=== PATIENT | female | born 1970 | race Two or more races ===

== ENCOUNTER 2025-04-14 08:37 | Inpatient (IN) | payer MEDICAID, OTHER ==
[~2025-04-14] VITALS: Ht 167.6 cm; Wt 74.0 kg
--- NOTE | 2025-04-14 09:18 | ED.PDOC ---
SOB-HPI HPI Comments This is a 54 year old female presenting to the ED with chief complaint of SOB. Patient reports that she has been experiencing intermittent SOB for the past 2 days. Patient denies any chest pain, fever, chills, dizziness, hemoptysis, N/V, or cough. Chief Complaint: Shortness of Breath Time Seen by MD: 09:17 Reviewed notes: Nurses Notes, Medications, Allergies Information Source: Patient Mode of Arrival: Ambulatory Severity: Moderate Timing: Days Duration: Intermittent Context: At Rest PE Risk Factors: None History of: None Prehospital treatment: None Modifying Factors: Nothing Past Medical History PAST MEDICAL HISTORY: CKF, DM, HTN Surgical History: Denies all surgeries REHABILITATION AIDE/SCHEDULER History: Denies all REHABILITATION AIDE/SCHEDULER Hx Family History Family History: Reviewed,noncontributory to illness Social History Smoker: Non-Smoker Alcohol: Denies ETOH Use Drugs: Denies Drug Use Lives In: Home Constitutional: denies: chills, diaphoresis, fatigue, fever, malaise, sweats, weakness, others EENTM: denies: blurred vision, double vision, ear bleeding, ear discharge, ear drainage, ear pain, ear ringing, eye pain, eye redness, hearing loss, mouth pain, mouth swelling, nasal discharge, nose bleeding, nose congestion, nose pain, photophobia, tearing, throat pain, throat swelling, voice changes, others Respiratory: reports: shortness of breath; denies: cough, hemoptysis, orthopnea, SOB at rest, SOB with excertion, stridor, wheezing, others Cardiovascular: denies: chest pain, dizzy spells, diaphoresis, Dyspnea on exertion, edema, irregular heart beat, left arm pain, lightheadedness, palpitations, PND, syncope, others Gastrointestinal: denies: abdomen distended, abdominal pain, blood streaked bowels, constipated, diarrhea, dysphagia, difficulty swallowing, hematemesis, melena, nausea, poor appetite, poor fluid intake, rectal bleeding, rectal pain, vomiting, others Genitourinary: denies: abnormal vagina bleeding, burning, dyspareunia, dysuria, flank pain, frequency, hematuria, incontinence, pain, , vagina discharge, urgency, others Neurological: denies: dizziness, fainting, headache, left sided numbness, left sided weakness, numbness, paresthesia, pre-existing deficit, right sided numbness, right sided weakness, seizure, speech problems, tingling, tremors, weakness, others Musculoskeletal: denies: back pain, gout, joint pain, joint swelling, muscle pain, muscle stiffness, neck pain, others Integumetry: denies: bruises, change in color, change in hair/nails, dryness, laceration, lesions, lumps, rash, wounds, others Allergic/Immunocompromised: denies: Difficulty Healing, Frequent Infections, Hives, Itching, others Hematologic/Lymphatic: denies: anemia, blood clots, easy bleeding, easy bruising, swollen glands, others Endocrine: denies: excessive hunger, excessive sweating, excessive thirst, excessive urination, flushing, intolerance to cold, intolerance to heat, unexplained weight gain, unexplained weight loss, others Psychiatric: denies: anxiety, bipolar disorder, depression, hopeless, panic disorder, schizophrenia, sleepless, suicidal, others All Other Systems: Reviewed and Negative Physical Exam General Appearance: Moderate Distress, Normal HEENT: Normal ENT Inspection, Pharynx Normal, TMs Normal Neck: Full Range of Motion, Non-Tender, Normal, Normal Inspection Respiratory: Chest Non-Tender, No Accessory Muscle Use, Other (Coarse breath sounds) Cardiovascular: No Edema, No JVD, No Murmur, No Gallop, Normal Peripheral Pulses, Regular Rate/Rhythm Breast Exam: Deferred Gastrointestinal: No Organomegaly, Non Tender, No Pulsatile Mass, Normal Bowel Sounds, Soft Genitalia: Deferred Pelvic: Deferred Rectal: Deferred Extremities: No calf tenderness, Normal capillary refill, Normal inspection, Normal range of motion, Non-tender, No pedal edema Musculoskeletal : Apperance: Normal Neurologic: Alert, cardiopulmonary technician II-XII nml as Tested, No Motor Deficits, Normal Affect, Normal Mood, No Sensory Deficits Cerebellar Function: Normal Reflexes: Normal Skin: Dry, Normal Color, Warm Peripheral Pulses: 3+ Radial (R), 3+ Radial (L) Lymphatic: No Adenopathy EKG EKG : Pulse Rate (adult): 98 [place]: Normal Cardiac Rhythm: NSR Block: None Hypertrophy: None ST: Normal Was a procedure done? Was a procedure done?: No Differential Dx Differential Diagnosis: Anxiety, Asthma, Bronchitis, CHF, COPD X-Ray, Labs, Meds, VS Vital Signs Date Time Temp Pulse Resp B/P (MAP) Pulse Ox O2 Delivery O2 Flow Rate FiO2 04/14/25 09:18 98 04/14/25 08:49 98 04/14/25 08:39 97.6 99 18 144/75 94 97.6 Patient alert. Complaining of shortness a breath. Chronic kidney disease. Vitals stable. Possible CHF. Possible pneumonitis. Nephrology consultation. Reviewed her history. Explained to the patient. Continue monitoring. Chest XR: FINDINGS: Lines and Tubes: None Lungs: Increased interstitial prominence Pleura: Small bilateral pleural effusions No pneumothorax. Cardiomediastinal contours: Unremarkable Bones: Unremarkable IMPRESSION: Pulmonary edema. Images Reviewed?: Images reviewed and evaluated by me Time of 1ST Reevaluation: 10:16 Reevaluation 1ST: Unchanged Patient Education/Counseling: Diagnosis, Treatment Family Education/Counseling: Diagnosis, Treatment SEPSIS Sepsis Screen Date sepsis recognized/suspect: Apr 14, 2025 Time Sepsis recognized/suspect: 0841 Recent Procedure: No On Antibiotic Therapy: No Respiratory Rate >20: No Heart Rate >90: No Temp<36 C (96.8 F) or >38.3 C: No SBP <90 or MAP <65 mmHG: No New Acute Mental Status Change: No Is the patient on CPAP, BIPAP,: No Physician Orders Complete Blood Count (04/14/25 09:12) B-Type Natriuretic Peptide (04/14/25 09:12) Chest Portable (04/14/25 09:12) Urinalysis (04/14/25 09:12) Basic Metabolic Panel (04/14/25 09:12) Vital Signs Date Time Temp Pulse Resp B/P (MAP) Pulse Ox O2 Delivery O2 Flow Rate FiO2 04/14/25 09:18 98 04/14/25 08:49 98 04/14/25 08:39 97.6 99 18 144/75 94 97.6 Departure 1 Departure Time of Disposition: :49 Impression: Primary Impression: CHF (congestive heart failure) Qualified Codes: I50.43 - Acute on chronic combined systolic (congestive) and diastolic (congestive) heart failure Additional Impression: Chronic kidney disease Qualified Codes: N18.9 - Chronic kidney disease, unspecified Disposition: ADMITTED INPATIENT Admit to: Med Surg Condition: Guarded Critical Care Note Critical Care Time?: Yes (90 min-critical care time only) Stability Stability form required: No Heart Score Heart Score: Heart Score Response (Comments) Value History Moderate Suspicious 1 EKG Normal 0 Age 45-64 1 Risk Factors 1 or 2 risk factors 1 Troponin Normal limit 0 Total 3 I personally scribed for LEXY ARVIZU MD ([email or web address]) on 04/14/25 at 09:18. Electronically submitted by Enrico Moncada ([email or web address]). I personally scribed for LEXY ARVIZU MD ([email or web address]) on 04/14/25 at 10:32. Electronically submitted by Enrico Moncada ([email or web address]). LEXY ARVIZU MD Apr 14, 2025 09:18
--- NOTE | 2025-04-14 09:51 | ECG ---
[facility] Test Date: 2025-04-14 Test Time: 08:49:14 Pat Name: RADHA VALLEJO Department: [facility] ED Room: [address] [place] [address] Gender: F Womens Volleyball Coach: LEAH : 1970 Requested By: LEXY ARVIZU Order Number: [id number] Reading MD: Franki Sandoval Measurements Intervals [place] Rate: 98 P: 71 MT: 171 QRS: 70 QRSD: 161 T: 41 QT: 427 QTc: 546 Interpretive Statements Sinus rhythm Nonspecific intraventricular conduction delay Electronically Signed On 04-14-2025 22:10:22 PDT by Franki Sandoval Please click the below link to view image of tracing.
--- NOTE | 2025-04-14 10:18 | DVH ---
CHEST RADIOGRAPH Indication: sob Technique: Single frontal view of the chest was obtained COMPARISON: None FINDINGS: Lines and Tubes: None Lungs: Increased interstitial prominence Pleura: Small bilateral pleural effusions No pneumothorax. Cardiomediastinal contours: Unremarkable Bones: Unremarkable IMPRESSION: Pulmonary edema.
[2025-04-14 10:44] LABS: Hematocrit 27.6 % (36.0-46.0); Hemoglobin 9.1 g/dL (12.2-16.2); Mean Corpuscular Hemoglobin 27.8 pg (28.0-32.0); Mean Corpuscular Volume 84.4 fL (80.0-100.0); Nucleated Red Blood Cells % 0.0 %
[2025-04-14 10:55] LABS: Sodium 141 mmol/L (136-145)
[2025-04-14 10:56] LABS: Anion Gap 16 (5-15)
[2025-04-14 11:01] LABS: BUN/Creatinine Ratio 7.7 (10.0-20.0)
[2025-04-14 11:04] LABS: Blood Urea Nitrogen 75 mg/dL (9-23); Calcium 8.1 mg/dL (8.7-10.4); Carbon Dioxide 16 mmol/L (20-31); Chloride 109 mmol/L (98-107); Glucose 143 mg/dL (74-106)
[2025-04-14 11:06] LABS: Potassium 5.8 mmol/L (3.5-5.1)
[2025-04-14] MEDS: FUROSEMIDE 20 MG/2 ML VIAL IV ONE (11:27)
[2025-04-14] MEDS ORDERED: DOCUSATE SOD 100 MG CAP PO PRN (14:00)
[2025-04-14] MEDS ORDERED: HYDROcodone-ACET 5/325MG TAB PO PRN (14:00)
[2025-04-14] MEDS ORDERED: DEXTROSE (50%) 50ML SYRG IV PRN (14:00)
[2025-04-14] MEDS: SODIUM CHLOR 0.9% PF (SALINE LOCK) 10ML VIAL/SYR IV SCH (14:20)
[2025-04-14] MEDS: SODIUM ZIRCONIUM CYCL 10 GM PAK PO ONE (15:06)
[2025-04-14] MEDS: InsuLIN REG 1unit/0.01ml Soln (100units/ml) SC ONE (15:13)
[2025-04-14] MEDS ORDERED: NITROGLYCERIN 0.4 MG SL TAB SL PRN (15:30)
[2025-04-14] MEDS ORDERED: MORPHINE SULFATE INJ 2 MG/ml SYRG IV PRN (15:30)
--- NOTE | 2025-04-14 15:32 | DVHHP2 ---
History of Present Illness Reason for Visit: Acute on chronic renal failure History of Present Illness The patient is a 51-year-old female with past medical history of chronic kidney failure, diabetes mellitus, and hypertension who presented to [facility] ED with complaint of shortness of breaths. Patient reports she has been experiencing intermittent shortness of breaths for the past 2 days. Patient was seen and evaluated in the ED, laboratory data shows WBC 8.2, hemoglobin 9.1, hematocrit 27.6, platelets 331, sodium 141, potassium 5.8, BUN 75, creatinine 9.95, glucose 143, calcium 8.1, BNP 533.89, blood pressure 152/77, heart rate 95, temperature 98.7 F, O2 saturation 94% on oxygen. Chest x-ray revealing pulmonary edema. Patient was given Lasix 20 mg IV x1, nephrology will follow the patient, please see medication orders section in the computer. On my assessment, patient denied chest pain, no headache, no dizziness, currently on oxygen, no diaphoresis, no abdominal pain, no nausea, no vomiting, no fever, no chills. Patient was admitted for further evaluation and medical management. Past Medical History Chronic kidney failure (CKF), DM, HTN Past Surgical History Denies all surgeries Family History Reviewed, noncontributory to the management of this case. Past Social History The patient lives at home, denies smoking, alcohol or illicit drugs abuse. Review of Systems Constitutional: Yes: Weakness; No: Fever, Chills, Sweats, Malaise, Other Eyes: No: Pain, Vision change, Conjunctivae inflammation, Eyelid inflammation, Other, Redness ENT: No: Ear pain, Ear discharge, Nose pain, Nose discharge, Nose congestion, Mouth pain, Mouth swelling, Throat pain, Throat swelling, Other Respiratory: No: Cough, Dry, Shortness of breath, SOB with excertion, Wheezing, Hemoptysis, Pleuritic Pain, Sputum, Wheezing, Other Cardiovascular: No: Chest Pain, Palpitations, Orthopnea, Paroxysmal Noc. Dyspnea, Edema, Lt Headedness, Other Gastrointestinal: No: Nausea, Vomiting, Abdominal Pain, Diarrhea, Constipation, Melena, Hematochezia, Other Genitourinary: No Dysuria, No Frequency, No Incontinence, No Hematuria, No Retention, No Other Musculoskeletal: No: other, neck pain, shoulder pain, arm pain, back pain, hand pain, leg pain, foot pain Skin: No: Rash, Lesions, Jaundice, Bruising, Other Neurological: No: Weakness, Numbness, Incoordination, Change in speech, Confusion, Seizures, Other Allergies: Coded Allergies: NO KNOWN ALLERGIES (Unverified , 04/14/25) Medications Current Medications Medications Dose Ordered Sig/Ronald Route Start Time Stop Time Status Last Admin Dose Admin Aspirin 81 mg DAILY PO 04/15/25 10:00 Multivit/Ca Carb/ B Cmplx/FA/Prenat 1 tab DAILY PO 04/15/25 10:00 Amlodipine Besylate 5 mg DAILY PO 04/15/25 10:00 Carvedilol 12.5 mg Q12HR PO 04/14/25 22:00 Atorvastatin Calcium 10 mg HS PO 04/14/25 22:00 Famotidine 20 mg DAILY IV 04/15/25 10:00 Clonidine HCl 0.1 mg Q4HP PRN PO 04/14/25 14:00 Diagnostic Test (Pha) 1 strip IQ4HR 04/14/25 16:00 Insulin Human Regular IQ4HR SC 04/14/25 16:00 Dextrose 50 ml UD PRN IV 04/14/25 14:00 Sodium Chloride 10 ml Q8HR IV 04/14/25 14:00 04/14/25 14:20 10 ML Acetaminophen/ Hydrocodone Bitart 1 tab Q4HP PRN PO 04/14/25 14:00 Ondansetron HCl 4 mg Q4HP PRN IV 04/14/25 14:00 Docusate Sodium 100 mg BIDPRN PRN PO 04/14/25 14:00 Acetaminophen 650 mg Q6HP PRN PO 04/14/25 14:00 Exam Vital Signs Vital Signs Date Time Temp Pulse Resp B/P (MAP) Pulse Ox O2 Delivery O2 Flow Rate FiO2 04/14/25 14:24 154/74 04/14/25 14:00 98.0 101 26 95 98.0 04/14/25 14:00 Nasal Cannula* 2 28 General Appearance: Alert, Oriented X3, Cooperative, No acute distress HEENT: Atraumatic, PERRLA, EOMI, Mucous membr. moist/pink Respiratory: Normal air movement, Other (Pulmonary edema) Cardiovascular: Regular rate, Normal S1, Normal S2, No murmurs Abdominal: Normal bowel sounds, Soft, No tenderness, No hepatospenomegaly, No masses Extremities: No clubbing, No cyanosis, No edema, Normal pulses, No tenderness/swelling Skin: No rashes, No breakdown, No significant lesion Neuro: Normal speech, Normal tone, Sensation intact, Cranial nerves 3-12 NL, Reflexes 2+, Other (Generalized weakness) Psych/Mental Status: Mental status NL, Mood NL Labs/Xrays Labs Test 04/14/25 15:04 04/14/25 10:13 Range/Units POC Glucose 220 H 70-106 mg/dl White Blood Count 8.2 4.4-10.8 10^3/uL Red Blood Count 3.27 L 4.0-5.20 10^6/uL Hemoglobin 9.1 L 12.2-16.2 g/dL Hematocrit 27.6 L 36.0-46.0 % Mean Corpuscular Volume 84.4 80.0-100.0 fL Mean Corpuscular Hemoglobin 27.8 L 28.0-32.0 pg Mean Corpuscular Hemoglobin Concent 32.9 32.0-36.0 g/dL Red Cell Distribution Width 14.6 H 11.8-14.3 % Platelet Count 331 140-450 10^3/uL Mean Platelet Volume 7.5 6.9-10.8 fL Neutrophils (%) (Auto) 69.2 37.0-80.0 % Lymphocytes (%) (Auto) 17.7 10.0-50.0 % Monocytes (%) (Auto) 5.2 0.0-12.0 % Eosinophils (%) (Auto) 6.9 0.0-7.0 % Basophils (%) (Auto) 1.0 0.0-2.0 % Neutrophils # (Auto) 5.6 1.6-8.6 10 ^3/uL Lymphocytes # (Auto) 1.4 0.4-5.4 10 ^3/uL Monocytes # (Auto) 0.4 0-1.3 10 ^3/uL Eosinophils # (Auto) 0.6 0-0.8 10 ^3/uL Basophils # (Auto) 0.1 0-0.2 10 ^3/uL Nucleated Red Blood Cells 0.0 % Sodium Level 141 136-145 mmol/L Potassium Level 5.8 *H 3.5-5.1 mmol/L Chloride Level 109 H 98-107 mmol/L Carbon Dioxide Level 16 L 20-31 mmol/L Anion Gap 16 H 5-15 Blood Urea Nitrogen 75 H 9-23 mg/dL Creatinine 9.76 H 0.550-1.02 mg/dL Glomerular Filtration Rate Calc 4 >90 mL/min BUN/Creatinine Ratio 7.7 L 10.0-20.0 Serum Glucose 143 H 74-106 mg/dL Calcium Level 8.1 L 8.7-10.4 mg/dL B-Type Natriuretic Peptide 533.89 0-100 pg/mL PATIENT: RADHA VALLEJO ACCT: [id number] UNIT: [id number] : 1970 LOC: ER ROOM / BED: / AGE / SEX: 54 / F ADM STATUS: REG ER SERVICE 1 ORDERING PHYSICIAN: LEXY ARVIZU MD PROCEDURE(s): CXRP - CHEST PORTABLE REASON: sob ORDER NUMBER(s): [id number], ACCESSION NUMBER(s): [id number] CHEST RADIOGRAPH Indication: sob Technique: Single frontal view of the chest was obtained COMPARISON: None FINDINGS: Lines and Tubes: None Lungs: Increased interstitial prominence Pleura: Small bilateral pleural effusions No pneumothorax. Cardiomediastinal contours: Unremarkable Bones: Unremarkable IMPRESSION: Pulmonary edema. SEPSIS Sepsis Screen Date sepsis recognized/suspect: Apr 14, 2025 Time Sepsis recognized/suspect: 0841 Recent Procedure: No On Antibiotic Therapy: No Respiratory Rate >20: No Heart Rate >90: No Temp<36 C (96.8 F) or >38.3 C: No SBP <90 or MAP <65 mmHG: No New Acute Mental Status Change: No Is the patient on CPAP, BIPAP,: No Physician Orders Chest Portable (04/14/25 09:12) Urinalysis (04/14/25 09:12) *[facility] (04/14/25 13:52) Aspirin Tablet (04/15/25 10:00) B-Complex W/ C & Folic Tablet (Nephro-Vi (04/15/25 10:00) Amlodipine Tablet (Norvasc Tablet) (04/15/25 10:00) Carvedilol Tablet (Coreg Tablet) (04/14/25 22:00) Atorvastatin (Lipitor) (04/14/25 22:00) Famotidine Injection (Pepcid Injection) (04/15/25 10:00) Type And Screen (04/14/25 13:52) Clonidine Hcl Tablet (Catapres Tablet) (04/14/25 14:00) Glucose Blood (Accu-Chek Comfort Curve T (04/14/25 16:00) Insulin R (Human) (Insulin R) (04/14/25 16:00) Dextrose 50% Syringe (04/14/25 14:00) Allergies (04/14/25 13:52) Code Status (04/14/25 13:52) Renal Standard(2gna,3gk,Lopho) (04/14/25 Dinner) Sodium Chloride Lock (Saline Lock Ns) (04/14/25 14:00) Oxygen Per Hour (04/14/25 13:52) Hydrocodone-Acet 5/325mg Tab ([place] 5/32 (04/14/25 14:00) Ondansetron Hcl (Zofran) (04/14/25 14:00) Docusate Sodium Capsule (Colace Capsule) (04/14/25 14:00) Complete Blood Count (04/15/25 04:00) Comprehensive Metabolic Panel (04/15/25 04:00) Condition: Serious (04/14/25 13:52) Acetaminophen Tablet (Tylenol Tablet) (04/14/25 14:00) Bedrest With Bathroom Privileg (04/14/25 13:52) Sequential Compression Device (04/14/25 ) Admit (04/14/25 15:30) Nitroglycerin Sublingual (Ntrostat Subli (04/14/25 15:30) Morphine Sulfate Injection (04/14/25 15:30) Stat Ekg For Chest Pain (04/14/25 15:30) Notify Md Of Changes From Base (04/14/25 15:30) Lead Quality Control Technician For 24 Hours (04/14/25 15:30) Emergency Dysrhythmia Protocol (04/14/25 15:30) Rhythm Strips Once Every Shift (04/14/25 15:30) Oxygen By Nasal Cannula (04/14/25 15:30) Vital Signs Date Time Temp Pulse Resp B/P (MAP) Pulse Ox O2 Delivery O2 Flow Rate FiO2 04/14/25 14:24 154/74 04/14/25 14:00 98.0 101 26 154/74 (100) 95 98.0 04/14/25 14:00 Nasal Cannula* 2 28 04/14/25 11:27 152/77 04/14/25 11:25 95 16 94 Room Air 04/14/25 11:25 98.7 95 16 152/77 (102) 94 98.7 04/14/25 09:18 98 04/14/25 08:49 98 04/14/25 08:39 97.6 99 18 144/75 94 97.6 Laboratory Tests Test 04/14/25 10:13 White Blood Count 8.2 10^3/uL (4.4-10.8) Medications Medications Dose Ordered Sig/Ronald Route Start Time Stop Time Status Last Admin Dose Admin Amlodipine Besylate 5 mg ONCE ONCE PO 04/14/25 14:00 04/14/25 14:04 DC 04/14/25 14:24 5 MG Furosemide 20 mg ONCE ONCE IV 04/14/25 10:00 04/14/25 10:01 DC 04/14/25 11:27 20 MG Insulin Human Regular 5 units ONCE ONCE SC 04/14/25 14:00 04/14/25 14:04 DC 04/14/25 15:13 5 UNITS Sodium Chloride 10 ml Q8HR IV 04/14/25 14:00 04/14/25 14:20 10 ML Zirconium Oxide 10 gm ONCE ONCE PO 04/14/25 14:00 04/14/25 14:05 DC 04/14/25 15:06 10 GM Assessment/Plan Assessment/Plan Acute on chronic renal failure Pulmonary edema Hyperkalemia Chronic kidney disease, unspecified Anemia of chronic disease Generalized weakness Acute exacerbation of congestive heart failure Plan 1. Admit to telemetry unit 2. Breathing treatment 3. Pain control management 4. Management of fluids and electrolytes 5. Consultation for Nephrology 6. Diagnostic tests chest x-ray 7. DVT prophylaxis -on aspirin 8. Repeat labs CBC, CMP in a.m. 9. Continue with current medical management 10. Treatment plan discussed with patient and RN. Patient verbalized understanding. Plan discussed with: Patient, Other (RN) My Orders Orders - LUCERO IBARRA DNP Procedure Category Date Status Time *Dr[facility] CONS 04/14/25 Transmitted -[place] 13:52 Aspirin Tablet PHA 04/15/25 In Process 10:00 B-Complex W/ C & PHA 04/15/25 In Process Folic Tablet 10:00 Amlodipine Tablet PHA 04/15/25 In Process (Norvasc Tablet) 10:00 Carvedilol Tablet PHA 04/14/25 In Process (Coreg Tablet) 22:00 Atorvastatin (Lipitor) PHA 04/14/25 In Process 22:00 Famotidine Injection PHA 04/15/25 In Process (Pepcid Injection) 10:00 Type And Screen BBK 04/14/25 In Process 13:52 Clonidine Hcl Tablet PHA 04/14/25 In Process (Catapres Tablet) 14:00 Glucose Blood PHA 04/14/25 In Process (Accu-Chek Comfort 16:00 Insulin R (Human) PHA 04/14/25 In Process (Insulin R) 16:00 Dextrose 50% Syringe PHA 04/14/25 In Process 14:00 Allergies SYLVIA 04/14/25 In Process 13:52 Code Status CODE 04/14/25 Transmitted 13:52 Renal DIET 04/14/25 Transmitted Standard(2gna,3gk,Lopho) Dinner Sodium Chloride Lock PHA 04/14/25 In Process (Saline Lock Ns) 14:00 Oxygen Per Hour RT 04/14/25 Transmitted 13:52 Hydrocodone-Acet PHA 04/14/25 In Process 5/325mg Tab ([place] 14:00 Ondansetron Hcl PHA 04/14/25 In Process (Zofran) 14:00 Docusate Sodium PHA 04/14/25 In Process Capsule (Colace 14:00 Complete Blood Count LAB 04/15/25 Verified 04:00 Comprehensive LAB 04/15/25 Verified Metabolic Panel 04:00 Condition: Serious SYLVIA 04/14/25 In Process 13:52 Acetaminophen Tablet PHA 04/14/25 In Process (Tylenol Tablet) 14:00 Bedrest With Bathroom SYLVIA 04/14/25 In Process Privileg 13:52 Sequential SYLVIA 04/14/25 In Process Compression Device Admit ADMIT 04/14/25 Transmitted 15:30 Nitroglycerin PHA 04/14/25 Transmitted Sublingual (Ntrostat 15:30 Morphine Sulfate PHA 04/14/25 Transmitted Injection 15:30 Stat Ekg For Chest SYLVIA 04/14/25 Transmitted Pain 15:30 Notify Md Of Changes SYLVIA 04/14/25 Transmitted From Base 15:30 Lead Quality Control Technician For [facility] 04/14/25 Transmitted 24 Hours 15:30 Emergency Dysrhythmia [facility] 04/14/25 Transmitted Protocol 15:30 Rhythm Strips Once [facility] 04/14/25 Transmitted Every Shift 15:30 Oxygen By Nasal RT 04/14/25 Transmitted Cannula 15:30 Problem List: (1) Acute on chronic renal failure (2) Pulmonary edema (3) Hyperkalemia (4) Chronic kidney disease, unspecified (5) Anemia of chronic disease (6) Generalized weakness (7) Acute exacerbation of congestive heart failure Date of Service: Apr 14, 2025 Billing Provider: LUCERO IBARRA DNP Common Visit Codes: [id number] INP/OBS CARE (HIGH) LUCERO IBARRA DNP Apr 14, 2025 15:32
[2025-04-14] MEDS: InsuLIN REG 1unit/0.01ml Soln (100units/ml) SC SCH (16:00)
[2025-04-14] MEDS: ACCU-CHEK COMFORT CURVE STRIP VI SCH (16:13)
[2025-04-14 18:21] LABS: Urine Protein, UAD 2+ (Negative)
[2025-04-14] MEDS: CALCIUM ACETATE 667 MG CAP PO ONE (19:10)
[2025-04-14] MEDS ORDERED: INSU1INJ19 SC (20:59)
[2025-04-14] MEDS ORDERED: CLON0.1T PO (20:59)
[2025-04-14] MEDS ORDERED: FLUT50SP NAS (20:59)
[2025-04-14] MEDS ORDERED: AMLO1TAB23 PO (20:59)
[2025-04-14] MEDS ORDERED: ZOLP5TAB5 PO (20:59)
[2025-04-14] MEDS: ATORVASTATIN 20 MG TAB PO SCH (21:08)
[2025-04-14] MEDS: CARVEDILOL 12.5 MG TAB PO SCH (21:09)
[2025-04-14 22:43] VITALS: BP 147/78; PULSE 101; RESP 22; TEMP 98.2; O2SAT 93
[2025-04-14 22:44] VITALS: BP 147/78; PULSE 104; RESP 22; TEMP 98.2; O2SAT 93
[2025-04-15] VITALS (16 sets, daily range): BP systolic 134–158; BP diastolic 74–88; PULSE 76–91; RESP 10–20; TEMP 96.8–98.6; O2SAT 86–96
[2025-04-15] MEDS: MELATONIN 5 MG TAB PO ONE (01:09)
[2025-04-15] MEDS: ALBUTEROL SULF 2.5 MG/0.5ML(0.5%) NEB SOLN NEB PRN (01:14)
[2025-04-15] MEDS: ALBUTEROL SULF 2.5 MG/0.5ML(0.5%) NEB SOLN NEB ONE (06:05)
[2025-04-15] MEDS: ALBUTEROL SULF 2.5 MG/0.5ML(0.5%) NEB SOLN ONE (08:23)
[2025-04-15] MEDS: CALCIUM ACETATE 667 MG CAP PO SCH ×2 (08:23→17:37)
[2025-04-15] MEDS: B-COMPLEX W/ C & FOLIC ACID(NEPHROVITE TAB) PO SCH (08:23)
[2025-04-15] MEDS: FAMOTIDINE (10MG/ML) 2ML VL IV SCH (08:25)
[2025-04-15] MEDS: CALCIUM GLUC 1,000mg/50ml-NS 50 ML IV ONE (10:21)
[2025-04-15] MEDS: DEXTROSE (50%) 50ML SYRG IV ONE (10:24)
[2025-04-15] MEDS: InsuLIN REG 1unit/0.01ml Soln (100units/ml) IV ONE (10:34)
[2025-04-15] MEDS: BUMETANIDE 1mg/4ml VIAL (0.25mg/ml) IV SCH (10:39)
[2025-04-15 10:42] LABS: Mean Corpuscular Hemoglobin 27.6 pg (28.0-32.0); Nucleated Red Blood Cells % 0.0 %
[2025-04-15 10:49] LABS: Hematocrit 23.8 % (36.0-46.0); Hemoglobin 7.9 g/dL (12.2-16.2); Mean Corpuscular Volume 82.9 fL (80.0-100.0)
[2025-04-15 10:56] LABS: Iron 54.0 ug/dL (50-170)
[2025-04-15 11:01] LABS: Alanine Aminotransferase 18 U/L (7-40); Albumin 3.9 g/dL (3.2-4.8); Alkaline Phosphatase 72 U/L (46-116); Anion Gap 13 (5-15); BUN/Creatinine Ratio 8.3 (10.0-20.0); Sodium 140 mmol/L (136-145); Total Iron Binding Capacity 225.0 ug/dL (250-425); Total Protein 5.9 g/dL (5.7-8.2)
[2025-04-15 11:02] LABS: Bilirubin, Total 0.3 mg/dL (0.2-1.0); Blood Urea Nitrogen 79 mg/dL (9-23); Calcium 8.0 mg/dL (8.7-10.4); Carbon Dioxide 18 mmol/L (20-31); Chloride 109 mmol/L (98-107); Glucose 144 mg/dL (74-106); Potassium 5.4 mmol/L (3.5-5.1)
--- NOTE | 2025-04-15 11:35 | DVHSR ---
APPROVED REPORT EXAM: Two-dimensional and M-mode echocardiogram with Doppler and color Doppler. Blood Pressure: 152/77 mmHg INDICATION Heart Failure RISK FACTORS Height: 5'6", Weight: 154 DIMENSIONS LVDd5.3 (3.8-5.7cm)LA (2D)5.0 (1.9-4.0cm)Aortic Root2.8 (2.0-3.7cm) LVDs3.9 (2.5-4.0cm)LA (MM) (1.9-4.0cm)Aortic Cusp Exc2.1 (1.5-2.0cm) EF (%) 50.0 (55-70%)Rt. Atrium3.5 (1.9-4.0cm)Asc. Aorta3.1 cm IVSd0.8 (0.7-1.1cm)RV (D)2.6 (1.8-2.4cm) PWd1.4 (0.7-1.1cm) Mitral Valve MitralMitral Stenosis E wave1.25m/sMV Mean GR.mmHg A wave1.07m/sMV Peak GR.mmHg E/A ratio1.22D MVAcm2 DECEL [id number] 1/2 Timems Aortic Valve Aortic ValveAortic Stenosis V11.05m/Beata Mean GR.6mmHg V21.38m/Beata Peak GR.8mmHg LVOT Diameter2.2 (1.8-2.4cm)Doppler AVA2.89cm2 AI P 1/2 Pbre263.23ms Pulmonic Valve V21.08m/s Tricuspid Valve TR Velocity2.91m/s [id number] Conclusion lvef 55% normal rv function left atrium enlarged moderate mitral regurg (could be worse) small circumferential pericardail effusion noted possible L sided pleural effusion
--- NOTE | 2025-04-15 12:35 | DVHINCON2 ---
Date of service: Apr 15, 2025 Reason for Consultation ckd 5 History of Present Illness 54-year-old white female known to me from Nephrology Clinic for chronic kidney disease stage 5, hypertension, diabetes, proteinuria, and fluid overload. Patient was planned for preparation of dialysis via peritoneal dialysis in 2023 however patient stopped following up in renal clinic and did not schedule appropriate follow-up. At the time she was ckd 5 but still had residual renal function. She now presents to the hospital complaining of shortness of breath and bilateral leg swelling and weakness. She was admitted and found to have hyperkalemia, anemia and fluid overload. SHe is now agreeing to start peritoneal dialysis Allergies: Coded Allergies: NO KNOWN ALLERGIES (Unverified , 04/14/25) Home Meds Reported Medications Clonidine Hydrochloride (Clonidine Hcl) 0.1 Mg Tab, 1 PO DAILY 04/14/25 Amlodipine Besylate (Amlodipine Besylate) 10 Mg Tab, 1 TAB PO DAILY 04/14/25 Zolpidem Tartrate (Zolpidem Tartrate) 5 Mg Tab, 1 TAB PO 04/14/25 Insulin Glargine (Basaglar Kwikpen) 100 Unit/Ml Inj, 60 UNIT SC BID 04/14/25 Fluticasone Propionate (Nasal) (Fluticasone Propionate) 50 Mcg/Act Spr, 2 SPRAY BRIANNA DAILY 04/14/25 Current Medications Current Medications Medications (Trade) Dose Ordered Sig/Ronald Route PRN Reason Start Time Stop Time Status Last Admin Aspirin 81 mg DAILY PO 04/15/25 10:00 04/15/25 08:24 Multivit/Ca Carb/ B Cmplx/FA/Prenat (Nephro-Karan Tablet) 1 tab DAILY PO 04/15/25 10:00 04/15/25 08:23 Amlodipine Besylate (Norvasc Tablet) 5 mg DAILY PO 04/15/25 10:00 04/15/25 08:24 Carvedilol (Coreg Tablet) 12.5 mg Q12HR PO 04/14/25 22:00 04/15/25 08:24 Atorvastatin Calcium (Lipitor) 10 mg HS PO 04/14/25 22:00 04/14/25 21:08 Famotidine (Pepcid Injection) 20 mg DAILY IV 04/15/25 10:00 04/15/25 08:25 Clonidine HCl (Catapres Tablet) 0.1 mg Q4HP PRN PO SBP>150 04/14/25 14:00 Diagnostic Test (Pha) (Accu-Chek Comfort Curve T) 1 strip IQ4HR 04/14/25 16:00 04/15/25 08:25 Insulin Human Regular (InsuLIN R) IQ4HR SC 04/14/25 16:00 04/15/25 08:41 Dextrose 50 ml UD PRN IV Blood Sugar LESS THAN 60 04/14/25 14:00 04/15/25 08:45 DC Sodium Chloride (Saline Lock Ns) 10 ml Q8HR IV 04/14/25 14:00 04/15/25 06:14 Acetaminophen/ Hydrocodone Bitart ([place] 5/325MG Tab) 1 tab Q4HP PRN PO MODERATE PAIN (4-6 PAIN SCALE) 04/14/25 14:00 Ondansetron HCl (Zofran) 4 mg Q4HP PRN IV NAUSEA / VOMITING 04/14/25 14:00 Docusate Sodium (Colace Capsule) 100 mg BIDPRN PRN PO FOR CONSTIPATION 04/14/25 14:00 Acetaminophen (Tylenol Tablet) 650 mg Q6HP PRN PO PAIN SCALE 1-3 OR TEMP>100.4 04/14/25 14:00 Nitroglycerin (Ntrostat Sublingual) 0.4 mg Q5MINP PRN SL FOR CHEST PAIN 04/14/25 15:30 Morphine Sulfate 2 mg Q30M PRN IV FOR CHEST PAIN 04/14/25 15:30 Calcium Acetate (Phoslo Capsule) 667 mg TIDWMEALS PO 04/15/25 08:00 04/15/25 08:23 Albuterol (Ventolin Medneb) 2.5 mg Q6HPRN PRN NEB SHORTNESS OF BREATH 04/15/25 00:45 04/15/25 01:14 Bumetanide (Bumex Injection) 2 mg BIDD IV 04/15/25 09:15 04/15/25 10:39 Bumetanide (Bumex Injection) 1 mg BIDD IV 04/15/25 18:00 UNV Family History: FH: breast cancer G8 MOTHER FH: lung cancer G8 MOTHER Review of Systems Swelling, shortness of breath, weakness H&P Exam Vital Signs/I&O Vital Sign Date Time Temp Pulse Resp B/P (MAP) Pulse Ox O2 Delivery O2 Flow Rate FiO2 04/15/25 10:39 143/79 04/15/25 10:00 95 Nasal Cannula* 5 40 04/15/25 08:34 91 16 04/15/25 05:00 96.8 96.8 Intake and Output 04/14/25 04/15/25 19:00 07:00 Intake Total 500 ml Balance 500 ml Intake Oral 500 ml # Voids 1 Physical Exam Middle-aged female Not in overt distress Abdomen is soft Bilateral 2+ pitting edema Mild crackles Labs/Diagnostic Data Labs/Diagnostic Data Laboratory Tests Test 04/15/25 08:34 04/15/25 08:17 04/15/25 04:26 04/15/25 00:17 Range/Units White Blood Count 7.3 4.4-10.8 10^3/uL Red Blood Count 2.87 L 4.0-5.20 10^6/uL Hemoglobin 7.9 L 12.2-16.2 g/dL Hematocrit 23.8 #L 36.0-46.0 % Mean Corpuscular Volume 82.9 80.0-100.0 fL Mean Corpuscular Hemoglobin 27.6 L 28.0-32.0 pg Mean Corpuscular Hemoglobin Concent 33.3 32.0-36.0 g/dL Red Cell Distribution Width 14.4 H 11.8-14.3 % Platelet Count 264 140-450 10^3/uL Mean Platelet Volume 7.6 6.9-10.8 fL Neutrophils (%) (Auto) 72.9 37.0-80.0 % Lymphocytes (%) (Auto) 16.4 10.0-50.0 % Monocytes (%) (Auto) 4.7 0.0-12.0 % Eosinophils (%) (Auto) 5.3 0.0-7.0 % Basophils (%) (Auto) 0.7 0.0-2.0 % Neutrophils # (Auto) 5.3 1.6-8.6 10 ^3/uL Lymphocytes # (Auto) 1.2 0.4-5.4 10 ^3/uL Monocytes # (Auto) 0.3 0-1.3 10 ^3/uL Eosinophils # (Auto) 0.4 0-0.8 10 ^3/uL Basophils # (Auto) 0.1 0-0.2 10 ^3/uL Nucleated Red Blood Cells 0.0 % Sodium Level 140 136-145 mmol/L Potassium Level 5.4 H 3.5-5.1 mmol/L Chloride Level 109 H 98-107 mmol/L Carbon Dioxide Level 18 L 20-31 mmol/L Anion Gap 13 5-15 Blood Urea Nitrogen 79 H 9-23 mg/dL Creatinine 9.54 H 0.550-1.02 mg/dL Glomerular Filtration Rate Calc 4 >90 mL/min BUN/Creatinine Ratio 8.3 L 10.0-20.0 Serum Glucose 144 H 74-106 mg/dL Hemoglobin A1c 6.4 H <5.7 % A1C Calcium Level 8.0 L 8.7-10.4 mg/dL Phosphorus Level 8.2 H 2.4-5.1 mg/dL Iron Level 54 50-170 ug/dL Total Iron Binding Capacity 225 L 250-425 ug/dL Percent Iron Saturation 24.0 15-50 % Ferritin 221.7 10-291 ng/mL Total Bilirubin 0.3 0.2-1.0 mg/dL Aspartate Amino Transferase (AST) 17 13-40 U/L Alanine Aminotransferase (ALT) 18 7-40 U/L Alkaline Phosphatase 72 46-116 U/L Total Protein 5.9 5.7-8.2 g/dL Albumin 3.9 3.2-4.8 g/dL Vitamin D 25-Hydroxy 78.9 30.0-100 ng/mL Thyroid Stimulating Hormone (TSH) 3.71 0.55-4.78 uIU/mL POC Glucose 159 H 131 H 110 H 70-106 mg/dl Test 04/14/25 20:21 04/14/25 17:40 04/14/25 15:04 04/14/25 10:13 Range/Units POC Glucose 178 H 220 H 70-106 mg/dl Urine Color Colorless Yellow Urine Clarity Clear Clear Urine pH 7.0 5.0-9.0 Urine Specific [place] 1.007 1.001-1.035 Urine Protein 2+ H Negative Urine Ketones Negative Negative Urine Blood 1+ H Negative /uL Urine Nitrite Negative Negative Urine Bilirubin Negative Negative Urine Urobilinogen Normal Negative mg/dL Urine Leukocyte Esterase 1+ Negative /uL Urine RBC 4 0 - 4 /hpf Urine Microscopic WBC 7 H 0-5 /HPF Urine Squamous Epithelial Cells Few <5 /hpf Urine Bacteria Few H None Seen /hpf Urine Glucose 3+ H Normal mg/dL White Blood Count 8.2 4.4-10.8 10^3/uL Red Blood Count 3.27 L 4.0-5.20 10^6/uL Hemoglobin 9.1 L 12.2-16.2 g/dL Hematocrit 27.6 L 36.0-46.0 % Mean Corpuscular Volume 84.4 80.0-100.0 fL Mean Corpuscular Hemoglobin 27.8 L 28.0-32.0 pg Mean Corpuscular Hemoglobin Concent 32.9 32.0-36.0 g/dL Red Cell Distribution Width 14.6 H 11.8-14.3 % Platelet Count 331 140-450 10^3/uL Mean Platelet Volume 7.5 6.9-10.8 fL Neutrophils (%) (Auto) 69.2 37.0-80.0 % Lymphocytes (%) (Auto) 17.7 10.0-50.0 % Monocytes (%) (Auto) 5.2 0.0-12.0 % Eosinophils (%) (Auto) 6.9 0.0-7.0 % Basophils (%) (Auto) 1.0 0.0-2.0 % Neutrophils # (Auto) 5.6 1.6-8.6 10 ^3/uL Lymphocytes # (Auto) 1.4 0.4-5.4 10 ^3/uL Monocytes # (Auto) 0.4 0-1.3 10 ^3/uL Eosinophils # (Auto) 0.6 0-0.8 10 ^3/uL Basophils # (Auto) 0.1 0-0.2 10 ^3/uL Nucleated Red Blood Cells 0.0 % Sodium Level 141 136-145 mmol/L Potassium Level 5.8 *H 3.5-5.1 mmol/L Chloride Level 109 H 98-107 mmol/L Carbon Dioxide Level 16 L 20-31 mmol/L Anion Gap 16 H 5-15 Blood Urea Nitrogen 75 H 9-23 mg/dL Creatinine 9.76 H 0.550-1.02 mg/dL Glomerular Filtration Rate Calc 4 >90 mL/min BUN/Creatinine Ratio 7.7 L 10.0-20.0 Serum Glucose 143 H 74-106 mg/dL Calcium Level 8.1 L 8.7-10.4 mg/dL B-Type Natriuretic Peptide 533.89 0-100 pg/mL Assessment 54-year-old female with chronic kidney disease stage 5 presents to the hospital with fluid overload. 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 Hypertension Anemia due to chronic kidney disease Fluid overload Pericardial effusion Hyperphosphatemia Hyperkalemia Patient is agreed to start Peritoneal dialysis as preferred modality We will start IV diuretic b.i.d. Obtain surgical consultation for peritoneal catheter placement. Hepatitis panel Phosphorus binder Epogen 3 times a week Low-salt diet Fluid restriction I have explained to patient that although peritoneal dialysis is her preferred modality based on her clinical symptoms and time course for training hemo could be a possible option required if she is not stable. Patient Understanding Care time 55 minutes Plan discussed with: Patient CARMITA WEST MD Apr 15, 2025 12:35
[2025-04-15] MEDS: EPOETIN ALFA-EPBX 10,000 UNIT/1ML VIAL SC SCH (13:38)
--- NOTE | 2025-04-15 17:18 | DVHPNRES ---
Progress Note Date Seen: Apr 15, 2025 Resident Creating Document: PRECIOUS TEMPLE RESIDENT Medical Necessity Reason Pt with a Central, PICC or Fol: No Subjective Review of Systems The patient is a 51-year-old female with past medical history of chronic kidney failure stage IV, diabetes mellitus, and hypertension who presented to [facility] ED with complaint of shortness of breaths. Patient reports she has been experiencing intermittent shortness of breaths for the past 2 months which has increased in the past few days. Patient said she went to [place] for a week and she bought [id number] inhalers which helped a bit but yesterday it did not which is why she came to the hospital. on inquiry she says she has some coughing with clear phlegm production. She reports having no sick contacts, denies any fever, chills, diaphoresis, chest pain, headache, dizziness or change in bowel and bladder habits. Past Medical History: CKD stage 4, DM, HTN Past Surgical History: Denies all surgeries Family History: Reviewed, noncontributory to the management of this case. Past Social History: The patient lives at home, denies smoking, alcohol or illicit drugs abuse. Allergies: None ROS: 04/15/2025: Patient was seen and examined by me at the bedside. Overnight events were reviewed. Patient reports she feels better today with oxygen. We have administered 5 L has a saturation was 94%. Her chest x-ray revealed pulmonary edema and acute blunting of the costovertebral angle, suggesting pleural effusion. Nephrology consult has been placed. Administered Bumex 1 mg b.i.d., put her on strict input-output monitoring, fluid restriction and as per nephron consulted the surgeon for peritoneal dialysis catheter for hemodialysis per Nephrology as the patient is CKD stage 4. Hb1AC- 6.4. also ordered MRSA nares, TSH-normal, COVID/ flu tests, liver panel, PTH-high 378.6, vitamin-D normal. Objective vital signs Vital Sign Date Time Temp Pulse Resp B/P (MAP) Pulse Ox O2 Delivery O2 Flow Rate FiO2 04/15/25 13:00 97.7 76 16 134/75 (94) 96 97.7 04/15/25 10:00 Nasal Cannula* 5 40 Total Intake and Output 04/14/25 04/14/25 04/15/25 15:00 23:00 07:00 Intake Total 500 ml Balance 500 ml medications Current Medications Medications Dose Ordered Sig/Ronald Route Start Time Stop Time Status Last Admin Dose Admin Aspirin 81 mg DAILY PO 04/15/25 10:00 04/15/25 08:24 81 MG Multivit/Ca Carb/ B Cmplx/FA/Prenat 1 tab DAILY PO 04/15/25 10:00 04/15/25 08:23 1 TAB Amlodipine Besylate 5 mg DAILY PO 04/15/25 10:00 04/15/25 08:24 5 MG Carvedilol 12.5 mg Q12HR PO 04/14/25 22:00 04/15/25 08:24 12.5 MG Atorvastatin Calcium 10 mg HS PO 04/14/25 22:00 04/14/25 21:08 10 MG Famotidine 20 mg DAILY IV 04/15/25 10:00 04/15/25 08:25 20 MG Clonidine HCl 0.1 mg Q4HP PRN PO 04/14/25 14:00 Diagnostic Test (Pha) 1 strip IQ4HR 04/14/25 16:00 04/15/25 12:00 1 STRIP Insulin Human Regular IQ4HR SC 04/14/25 16:00 04/15/25 08:41 2 UNITS Sodium Chloride 10 ml Q8HR IV 04/14/25 14:00 04/15/25 13:14 10 ML Acetaminophen/ Hydrocodone Bitart 1 tab Q4HP PRN PO 04/14/25 14:00 Ondansetron HCl 4 mg Q4HP PRN IV 04/14/25 14:00 Docusate Sodium 100 mg BIDPRN PRN PO 04/14/25 14:00 Acetaminophen 650 mg Q6HP PRN PO 04/14/25 14:00 Nitroglycerin 0.4 mg Q5MINP PRN SL 04/14/25 15:30 Morphine Sulfate 2 mg Q30M PRN IV 04/14/25 15:30 Albuterol 2.5 mg Q6HPRN PRN NEB 04/15/25 00:45 04/15/25 01:14 2.5 MG Bumetanide 2 mg BIDD IV 04/15/25 09:15 04/15/25 10:39 2 MG Calcium Acetate 1,334 mg TIDWMEALS PO 04/15/25 18:00 Epoetin Warren-epbx 10,000 unit [facility] 04/15/25 12:30 04/15/25 13:38 10,000 UNIT Examination General Appearance: Alert, Oriented X3, Cooperative, No acute distress HEENT: Atraumatic, PERRLA, EOMI, Mucous membr. moist/pink Respiratory: Normal air movement, Bilateral bibasilar crackles Cardiovascular: Regular rate, Normal S1, Normal S2, No murmurs Abdominal: Normal bowel sounds, Soft, No tenderness, No hepatospenomegaly, No masses Extremities: No clubbing, No cyanosis, Normal pulses, +1 pitting edema in bilateral legs Skin: No rashes, No breakdown, No significant lesion Neuro: Normal speech, Normal tone, Sensation intact, Cranial nerves 3-12 NL, Reflexes 2+, Other (Generalized weakness) Psych/Mental Status: Mental status NL, Mood NL laboratory and microbiology Laboratory Tests 04/15/25 13:00 04/15/25 08:34 Test 04/15/25 08:34 Range/Units Serum Glucose 144 H 74-106 mg/dL Labs and/or images reviewed: Labs reviewed by me, Image(s) reviewed by me Problem List/Assessment/Plan Problem List/Assessment/Plan #Pulmonary edema #Small bilateral pleural effusions -x-ray: Pulmonary edema, Small bilateral pleural effusions -furosemide -Breathing treatment #CKD stage 4 -Nephrology consult suggested peritoneal dialysis catheter for hemodialysis -Bumex 2 mg b.i.d. IV #Uncontrolled diabetes mellitus, HbA1c 6.4 -mild Sliding scale insulin #Hyperkalemia -per protocol - 10 units insulin with dextrose, albuterol, calcium gluconate #Anemia of chronic disease -monitor H&H #asymptomatic UTI -UA bacteria few, WBC 7, leukocyte esterase 1+, RBC 4+, protein 2+, blood 1+ # secondary hyperparathyroidism due to CKD -calcium acetate tid with meals GI prophylaxis: not indicated DVT prophylaxis: ambulating Diet: renal diet Goals of care discussed with the patient for more than 27 minutes: Full code status Case discussed with Dr. Carpenter patient and nurse. Plan discussed with: Patient, Other (rn) My Orders My Orders Orders - PRECIOUS TEMPLE RESIDENT Procedure Category Date Status Time Mrsa Screen VASYL 04/15/25 Uncollected 08:40 Covid19 Antigen Lorri LAB 04/15/25 Logged Rapid Influenza A&B LAB 04/15/25 Logged 08:40 Strict I & O SYLVIA 04/15/25 In Process 08:40 * Surgical Consult CONS 04/15/25 Transmitted Date of Service: Apr 15, 2025 Billing Provider: SHON LLANOS MD Common Visit Codes: [id number] INP/OBS CARE(HIGH) PRECIOUS TEMPLE RESIDENT Apr 15, 2025 17:18 SHON LLANOS MD Apr 28, 2025 02:13
[2025-04-15] MEDS ORDERED: BUMETANIDE 1mg/4ml VIAL (0.25mg/ml) IV SCH (18:00)
--- NOTE | 2025-04-15 20:03 | DVHCONRES ---
Date Seen: Apr 15, 2025 Resident Creating Document: JABIER GARCÍA Jr., MD Referring Physician er Reason for Consultation Need for dialysis access peritoneal dialysis versus hemodialysis History of Present Illness 54-year-old white female known to me from Nephrology Clinic for chronic kidney disease stage 5, hypertension, diabetes, proteinuria, and fluid overload. Patient was planned for preparation of dialysis via peritoneal dialysis in 2023 however patient stopped following up in renal clinic and did not schedule appro priate follow-up. At the time she was ckd 5 but still had residual renal function. She now presents to the hospital complaining of shortness of breath and bilateral leg swelling and weakness. She was admitted and found to have hyperkalemia, anemia and fluid overload. SHe is now agreeing to start peritoneal dialysis Of note patient has had prior lower midline abdominal incision proximally 10 years ago for tumor excision. Past Medical History = chronic kidney disease stage 5, hypertension, diabetes, exploratory laparotomy and mass excision. Past Surgical History Exploratory laparotomy and mass excision Family History: FH: breast cancer G8 MOTHER FH: lung cancer G8 MOTHER Social History Nonsmoker nondrinker Allergies: Coded Allergies: NO KNOWN ALLERGIES (Unverified , 04/14/25) Home Meds Reported Medications Clonidine Hydrochloride (Clonidine Hcl) 0.1 Mg Tab, 1 PO DAILY 04/14/25 Amlodipine Besylate (Amlodipine Besylate) 10 Mg Tab, 1 TAB PO DAILY 04/14/25 Zolpidem Tartrate (Zolpidem Tartrate) 5 Mg Tab, 1 TAB PO 04/14/25 Insulin Glargine (Basaglar Kwikpen) 100 Unit/Ml Inj, 60 UNIT SC BID 04/14/25 Fluticasone Propionate (Nasal) (Fluticasone Propionate) 50 Mcg/Act Spr, 2 SPRAY BRIANNA DAILY 04/14/25 Current Medications Current Medications Medications (Trade) Dose Ordered Sig/Ronald Route PRN Reason Start Time Stop Time Status Last Admin Aspirin 81 mg DAILY PO 04/15/25 10:00 04/15/25 08:24 Multivit/Ca Carb/ B Cmplx/FA/Prenat (Nephro-Karan Tablet) 1 tab DAILY PO 04/15/25 10:00 04/15/25 08:23 Amlodipine Besylate (Norvasc Tablet) 5 mg DAILY PO 04/15/25 10:00 04/15/25 08:24 Carvedilol (Coreg Tablet) 12.5 mg Q12HR PO 04/14/25 22:00 04/15/25 08:24 Atorvastatin Calcium (Lipitor) 10 mg HS PO 04/14/25 22:00 04/14/25 21:08 Famotidine (Pepcid Injection) 20 mg DAILY IV 04/15/25 10:00 04/15/25 08:25 Calcium Acetate (Phoslo Capsule) 667 mg TIDWMEALS PO 04/15/25 08:00 04/15/25 12:28 DC 04/15/25 08:23 Albuterol (Ventolin Medneb) 2.5 mg Q6HPRN PRN NEB SHORTNESS OF BREATH 04/15/25 00:45 04/15/25 01:14 Bumetanide (Bumex Injection) 2 mg BIDD IV 04/15/25 09:15 04/15/25 17:38 Bumetanide (Bumex Injection) 1 mg BIDD IV 04/15/25 18:00 04/15/25 13:16 DC Calcium Acetate (Phoslo Capsule) 1,334 mg TIDWMEALS PO 04/15/25 18:00 04/15/25 17:37 Epoetin Warren-epbx (Retacrit) 10,[facility] 04/15/25 12:30 04/15/25 13:38 Review of Systems All systems reviewed otherwise negative other than what is HPI. Vital Signs Vital Signs Date Time Temp Pulse Resp B/P (MAP) Pulse Ox O2 Delivery O2 Flow Rate FiO2 04/15/25 17:38 145/80 04/15/25 17:00 97.5 79 17 95 97.5 04/15/25 10:00 Nasal Cannula* 5 40 Physical Exam Abdomen is soft nontender with no pulsatile abdominal mass or bruits does have a lower midline incision. Which is well healed lower extremities palpable femoral and pedal pulses bilaterally upper extremities palpable brachial radial and ulnar pulses. Negative balance test. Labs/Diagnostic Data Labs Test 04/15/25 17:08 04/15/25 13:00 04/15/25 08:34 04/14/25 17:40 Range/Units POC Glucose 179 H 70-106 mg/dl Potassium Level 5.2 H 3.5-5.1 mmol/L White Blood Count 7.3 4.4-10.8 10^3/uL Red Blood Count 2.87 L 4.0-5.20 10^6/uL Hemoglobin 7.9 L 12.2-16.2 g/dL Hematocrit 23.8 #L 36.0-46.0 % Mean Corpuscular Volume 82.9 80.0-100.0 fL Mean Corpuscular Hemoglobin 27.6 L 28.0-32.0 pg Mean Corpuscular Hemoglobin Concent 33.3 32.0-36.0 g/dL Red Cell Distribution Width 14.4 H 11.8-14.3 % Platelet Count 264 140-450 10^3/uL Mean Platelet Volume 7.6 6.9-10.8 fL Neutrophils (%) (Auto) 72.9 37.0-80.0 % Lymphocytes (%) (Auto) 16.4 10.0-50.0 % Monocytes (%) (Auto) 4.7 0.0-12.0 % Eosinophils (%) (Auto) 5.3 0.0-7.0 % Basophils (%) (Auto) 0.7 0.0-2.0 % Neutrophils # (Auto) 5.3 1.6-8.6 10 ^3/uL Lymphocytes # (Auto) 1.2 0.4-5.4 10 ^3/uL Monocytes # (Auto) 0.3 0-1.3 10 ^3/uL Eosinophils # (Auto) 0.4 0-0.8 10 ^3/uL Basophils # (Auto) 0.1 0-0.2 10 ^3/uL Nucleated Red Blood Cells 0.0 % Sodium Level 140 136-145 mmol/L Chloride Level 109 H 98-107 mmol/L Carbon Dioxide Level 18 L 20-31 mmol/L Anion Gap 13 5-15 Blood Urea Nitrogen 79 H 9-23 mg/dL Creatinine 9.54 H 0.550-1.02 mg/dL Glomerular Filtration Rate Calc 4 >90 mL/min BUN/Creatinine Ratio 8.3 L 10.0-20.0 Serum Glucose 144 H 74-106 mg/dL Hemoglobin A1c 6.4 H <5.7 % A1C Calcium Level 8.0 L 8.7-10.4 mg/dL Phosphorus Level 8.2 H 2.4-5.1 mg/dL Iron Level 54 50-170 ug/dL Total Iron Binding Capacity 225 L 250-425 ug/dL Percent Iron Saturation 24.0 15-50 % Ferritin 221.7 10-291 ng/mL Total Bilirubin 0.3 0.2-1.0 mg/dL Aspartate Amino Transferase (AST) 17 13-40 U/L Alanine Aminotransferase (ALT) 18 7-40 U/L Alkaline Phosphatase 72 46-116 U/L Total Protein 5.9 5.7-8.2 g/dL Albumin 3.9 3.2-4.8 g/dL Vitamin D 25-Hydroxy 78.9 30.0-100 ng/mL Thyroid Stimulating Hormone (TSH) 3.71 0.55-4.78 uIU/mL Parathyroid Hormone (Intact) 378.6 H 18.4-80.1 pg/mL Urine Color Colorless Yellow Urine Clarity Clear Clear Urine pH 7.0 5.0-9.0 Urine Specific [place] 1.007 1.001-1.035 Urine Protein 2+ H Negative Urine Ketones Negative Negative Urine Blood 1+ H Negative /uL Urine Nitrite Negative Negative Urine Bilirubin Negative Negative Urine Urobilinogen Normal Negative mg/dL Urine Leukocyte Esterase 1+ Negative /uL Urine RBC 4 0 - 4 /hpf Urine Microscopic WBC 7 H 0-5 /HPF Urine Squamous Epithelial Cells Few <5 /hpf Urine Bacteria Few H None Seen /hpf Urine Glucose 3+ H Normal mg/dL Test 04/14/25 10:13 Range/Units B-Type Natriuretic Peptide 533.89 0-100 pg/mL Assessment Chronic kidney disease stage 4. Due to the lower midline incision most likely is not a very good candidate for peritoneal dialysis with a high rate of dysfunction with possible scar tissue. Would recommend vein mapping for fistula creation as well. If needs urgent dialysis we will need tunneled dialysis catheter. We will need cardiac clearance Plan/Recommendation Chronic kidney disease stage 4. Due to the lower midline incision most likely is not a very good candidate for peritoneal dialysis with a high rate of dysfunction with possible scar tissue. Would recommend vein mapping for fistula creation as well. If needs urgent dialysis we will need tunneled dialysis catheter. We will need cardiac clearance Plan discussed with: Patient, Spouse JABIER GARCÍA Jr., MD Apr 15, 2025 20:03
[2025-04-15] MEDS: SODIUM ZIRCONIUM CYCL 10 GM PAK PO ONE (20:54)
[2025-04-16] VITALS (15 sets, daily range): BP systolic 135–156; BP diastolic 69–84; PULSE 80–93; RESP 16–20; TEMP 97–98.3; O2SAT 90–98
[2025-04-16] MEDS: SODIUM BICARBONATE 650 MG TAB PO SCH (00:21)
[2025-04-16 07:41] LABS: Hemoglobin 8.2 g/dL (12.2-16.2)
[2025-04-16 07:44] LABS: Hematocrit 24.2 % (36.0-46.0); Mean Corpuscular Hemoglobin 28.1 pg (28.0-32.0); Mean Corpuscular Volume 83.1 fL (80.0-100.0); Nucleated Red Blood Cells % 0.1 %
[2025-04-16 08:14] LABS: Alanine Aminotransferase 18 U/L (7-40); Alkaline Phosphatase 68 U/L (46-116); Anion Gap 12 (5-15); BUN/Creatinine Ratio 7.8 (10.0-20.0); Sodium 141 mmol/L (136-145)
[2025-04-16 08:15] LABS: Albumin 3.6 g/dL (3.2-4.8)
[2025-04-16 08:22] LABS: Bilirubin, Total 0.2 mg/dL (0.2-1.0); Blood Urea Nitrogen 77 mg/dL (9-23); Calcium 8.1 mg/dL (8.7-10.4); Carbon Dioxide 19 mmol/L (20-31); Chloride 110 mmol/L (98-107); Glucose 116 mg/dL (74-106); Potassium 5.6 mmol/L (3.5-5.1); Total Protein 5.6 g/dL (5.7-8.2)
[2025-04-16] MEDS: fentaNYL CITRATE 100 MCG/2 ML VL ONE (10:56)
[2025-04-16] MEDS: MIDAZOLAM HCL 2MG/2ML 2ml VIAL (1mg/ml) ONE (10:57)
[2025-04-16] MEDS: HEPARIN SODIUM (PORCINE) 5000 UNITS/ML 1ML VIAL ONE (11:01)
[2025-04-16] MEDS: LIDOCAINE 2%HCL (LOCAL ANESTH.) INJ 20ML MDV ONE (11:01)
[2025-04-16] MEDS: ceFAZolin 1GM/50ML 50 ML IV ONE (11:08)
--- NOTE | 2025-04-16 12:12 | DVH ---
XY Insertion of Venous Cath, HISTORY: HD PLACEMENT PROCEDURE: Informed consent was obtained. The patient was placed supine on the interventional table. A limited localization ultrasound of the right neck base was obtained. The right neck base and upper chest were prepped with chlorhexidine which was allowed to dry and draped in the usual sterile fashio n. Time out was performed. IV sedation was administered. The skin and the soft tissues were infiltrat ed with 1% Lidocaine . With real-time ultrasound guidance, the internal jugular vein was accessed wit h a micropuncture kit, and an image documenting patency was recorded to PACS. A subcutaneous tunneled tract was created from the right upper chest to the venotomy site. A 14.5 Romanian Sonoita Path, 19 cm l denis hemodialysis catheter was advanced through the tunneled tract. Fluoroscopy was used to advance a guidewire through the internal jugular vein into the inferior vena cava. Following serial dilatation, a 15 Romanian peel-away sheath was introduced, though which was adva nced the catheter into the right atrium. The catheter tip position was confirmed with fluoroscopy. Th ere was satisfactory flow in both lumens. The catheter lumens were flushed with saline and heparin wa s left indwelling in the catheter. A post-procedure image of the chest was obtained. The neck incisio n site was closed with Dermabond and dressed sterilely. The catheter was sutured at the skin surface and exit site also dressed sterilely. No immediate complication was identified. DAP 43.7 FLUOROSCOPY TIME: 0.9 minutes. SEDATION: Dr. Hipolito Chappell was personally responsible for the administration of moderate sedation during the procedure performed, including the use of an independent trained observer who had no other duties during the procedure. The drugs utilized were IV fentanyl and versed (see nursing log for details). The total time of supervision by the attending physician was approximately 30 minutes. FINDINGS: Widely patent right IJV. Post procedure image demonstrates smooth course of the hemodialysi s catheter with the tip in the right atrium. IMPRESSION: Successful placement of 14.5 anguillan Sonoita Path, 19 cm long hemodialysis catheter through right international sales manager al jugular vein. Plan: Please contact IR for removal when no longer needed.
--- NOTE | 2025-04-16 12:58 | DVHPNRES ---
Progress Note Date Seen: Apr 16, 2025 Resident Creating Document: [facility] RESIDENT Medical Necessity Reason Pt with a Central, PICC or Fol: No Subjective Review of Systems The patient is a 51-year-old female with past medical history of chronic kidney failure stage IV, diabetes mellitus, and hypertension who presented to [facility] ED with complaint of shortness of breaths. Patient reports she has been experiencing intermittent shortness of breaths for the past 2 months which has increased in the past few days. Patient said she went to [place] for a week and she bought [id number] inhalers which helped a bit but yesterday it did not which is why she came to the hospital. On inquiry she says she has some coughing with clear phlegm production. She reports having no sick contacts, denies any fever, chills, diaphoresis, chest pain, headache, dizziness or change in bowel and bladder habits. Past Medical History: CKD stage 4, DM, HTN Past Surgical History: Denies all surgeries Family History: Reviewed, noncontributory to the management of this case. Past Social History: The patient lives at home, denies smoking, alcohol or illicit drugs abuse. Allergies: None ROS: 04/15/2025: Patient was seen and examined by me at the bedside. Overnight events were reviewed. Patient reports she feels better today with oxygen. We have administered 5 L has a saturation was 94%. Her chest x-ray revealed pulmonary edema and acute blunting of the costovertebral angle, suggesting pleural effusion. Nephrology consult has been placed. Administered Bumex 1 mg b.i.d., put her on strict input-output monitoring, fluid restriction and as per nephron consulted the surgeon for peritoneal dialysis catheter for hemodialysis per Nephrology as the patient is CKD stage 4. Ordered Hb1AC, pending. also ordered MRSA nares, TSH, COVID/ flu tests, liver panel, PTH, vitamin-D, 04/16/25: Patient was seen and examined by me at the bedside. Overnight events were reviewed. Today a tunnel catheter was placed on the right side of the chest. Surgery since she was a poor candidate for peritoneal dialysis with a high rate of dysfunction with possible scar tissue. Patient is still requiring 5 L of oxygen. Her shortness of breath increases on exertion. We are awaiting chair time for hemodialysis. Patient's potassium was 5.6 today and we started her on Lokelma b.i.d.. Objective vital signs Vital Sign Date Time Temp Pulse Resp B/P (MAP) Pulse Ox O2 Delivery O2 Flow Rate FiO2 04/16/25 11:47 97.8 82 20 155/84 (107) 92 97.8 04/16/25 06:54 Nasal Cannula* 5 40 Total Intake and Output 04/15/25 04/15/25 04/16/25 15:00 23:00 07:00 Intake Total 100 ml 1250 ml 550 ml Balance 100 ml 1250 ml 550 ml medications Current Medications Medications Dose Ordered Sig/Ronald Route Start Time Stop Time Status Last Admin Dose Admin Aspirin 81 mg DAILY PO 04/15/25 10:00 04/15/25 08:24 81 MG Multivit/Ca Carb/ B Cmplx/FA/Prenat 1 tab DAILY PO 04/15/25 10:00 04/15/25 08:23 1 TAB Amlodipine Besylate 5 mg DAILY PO 04/15/25 10:00 04/15/25 08:24 5 MG Carvedilol 12.5 mg Q12HR PO 04/14/25 22:00 04/15/25 21:09 12.5 MG Atorvastatin Calcium 10 mg HS PO 04/14/25 22:00 04/15/25 21:09 10 MG Famotidine 20 mg DAILY IV 04/15/25 10:00 04/15/25 08:25 20 MG Clonidine HCl 0.1 mg Q4HP PRN PO 04/14/25 14:00 Diagnostic Test (Pha) 1 strip IQ4HR 04/14/25 16:00 04/16/25 04:00 1 STRIP Insulin Human Regular IQ4HR SC 04/14/25 16:00 04/16/25 08:38 3 UNITS Sodium Chloride 10 ml Q8HR IV 04/14/25 14:00 04/16/25 06:00 10 ML Acetaminophen/ Hydrocodone Bitart 1 tab Q4HP PRN PO 04/14/25 14:00 Ondansetron HCl 4 mg Q4HP PRN IV 04/14/25 14:00 Docusate Sodium 100 mg BIDPRN PRN PO 04/14/25 14:00 Acetaminophen 650 mg Q6HP PRN PO 04/14/25 14:00 Nitroglycerin 0.4 mg Q5MINP PRN SL 04/14/25 15:30 Morphine Sulfate 2 mg Q30M PRN IV 04/14/25 15:30 Albuterol 2.5 mg Q6HPRN PRN NEB 04/15/25 00:45 04/16/25 06:48 2.5 MG Bumetanide 2 mg BIDD IV 04/15/25 09:15 04/16/25 06:00 2 MG Calcium Acetate 1,334 mg TIDWMEALS PO 04/15/25 18:00 04/16/25 12:54 1,334 MG Epoetin Warren-epbx 10,000 unit TUTHSA SC 04/15/25 12:30 04/15/25 13:38 10,000 UNIT Sodium Bicarbonate 650 mg BID PO 04/15/25 22:00 04/16/25 00:21 650 MG Examination General Appearance: Alert, Oriented X3, Cooperative, No acute distress HEENT: Atraumatic, PERRLA, EOMI, Mucous membr. moist/pink Respiratory: Normal air movement, Bilateral bibasilar crackles requiring 5 L of oxygen via nasal cannula Cardiovascular: Regular rate, Normal S1, Normal S2, No murmurs Abdominal: Normal bowel sounds, Soft, No tenderness, No hepatospenomegaly, No masses Extremities: No clubbing, No cyanosis, Normal pulses, +1 pitting edema in bilateral legs Skin: No rashes, No breakdown, No significant lesion Neuro: Normal speech, Normal tone, Sensation intact, Cranial nerves 3-12 NL, Reflexes 2+, Other (Generalized weakness) Psych/Mental Status: Mental status NL, Mood NL laboratory and microbiology Laboratory Tests 04/16/25 06:44 Test 04/16/25 06:44 Range/Units Serum Glucose 116 H 74-106 mg/dL Labs and/or images reviewed: Labs reviewed by me, Image(s) reviewed by me Problem List/Assessment/Plan Problem List/Assessment/Plan #Pulmonary edema #Small bilateral pleural effusions -x-ray: Pulmonary edema, Small bilateral pleural effusions -furosemide -Breathing treatment #CKD stage 4 -Nephrology consult suggested peritoneal dialysis catheter for hemodialysis -Bumex 2 mg b.i.d. IV -surg consulted for peritoneal dialysis catheter for HD suggested: Due to the lower midline incision most likely is not a very good candidate for peritoneal dialysis with a high rate of dysfunction with possible scar tissue. Would recommend vein mapping for fistula creation as well. If needs urgent dialysis we will need tunneled dialysis catheter. We will need cardiac clearance -IR consulted for vein mapping -patient received tunnel catheter, awaiting hemodialysis -cardiac clearance received for AV fistula formation #Uncontrolled diabetes mellitus, HbA1c 6.4 -mild Sliding scale insulin #Hyperkalemia -04/15/2025, 5.9- per protocol - 10 units insulin with dextrose, albuterol, calcium gluconate -potassium 5.6-Lokelma b.i.d. started #Anemia of chronic disease -monitor H&H #asymptomatic UTI -UA bacteria few, WBC 7, leukocyte esterase 1+, RBC 4+, protein 2+, blood 1+ # secondary hyperparathyroidism due to CKD -calcium acetate tid with meals GI prophylaxis: not indicated DVT prophylaxis: ambulating Diet: renal diet Goals of care discussed with the patient for more than 27 minutes: Full code status Case discussed with Dr. Carpenter patient and nurse. Plan discussed with: Patient, Other (rn) My Orders My Orders Orders - [facility] Procedure Category Date Status Time Insertion Of Venous XY 04/16/25 Resulted Cath 11:48 Date of Service: Apr 16, 2025 Billing Provider: SHON LLANOS MD Common Visit Codes: [id number] INP/OBS CARE(HIGH) [facility] Apr 16, 2025 12:58 SHON LLANOS MD Apr 28, 2025 02:24
--- NOTE | 2025-04-16 16:45 | DVHINCON2 ---
Date Seen: Apr 16, 2025 Referring Physician MD Artie resident Reason for Consultation Cardiac risk stratification History of Present Illness This is a 54-year-old female patient who presents to emergency room with chief complaint of shortness of breath. The patient reports experiencing shortness of breath for two days prior to emergency room arrival. She decided to come to the emergency room for further evaluation. Cardiology has been consulted at this time for cardiac risk stratification. During this admission, she was found to have hyperkalemia and fluid overload with her pre-existing chronic kidney disease, the patient was evaluated by Nephrology and it was deemed necessary that she would need dialysis. At this time, vascular is requesting clearance for the recommended vein mapping for fistula creation. No twelve lead electrocardiogram was found in patient's hard chart. A new twelve lead electrocardiogram was requested at time of assessment and was done by bedside RN and reveals normal sinus rhythm with nonspecific ST segment changes to lateral leads. She denies any chest pain or palpitations. Significant past medical history includes hypertension, dyslipidemia, type 2 diabetes mellitus, and chronic kidney disease. Past Medical History Past medical history reviewed. No other significant than mentioned above. Past Surgical History Exploratory laparotomy with tumor removal (not cancerous) Family History: FH: breast cancer G8 MOTHER FH: lung cancer G8 MOTHER Family History Family history reviewed. Social History Denies the use of tobacco, alcohol or illicit drugs. Allergies: Coded Allergies: NO KNOWN ALLERGIES (Unverified , 04/14/25) Home Meds Reported Medications Clonidine Hydrochloride (Clonidine Hcl) 0.1 Mg Tab, 1 PO DAILY 04/14/25 Amlodipine Besylate (Amlodipine Besylate) 10 Mg Tab, 1 TAB PO DAILY 04/14/25 Zolpidem Tartrate (Zolpidem Tartrate) 5 Mg Tab, 1 TAB PO 04/14/25 Insulin Glargine (Basaglar Kwikpen) 100 Unit/Ml Inj, 60 UNIT SC BID 04/14/25 Fluticasone Propionate (Nasal) (Fluticasone Propionate) 50 Mcg/Act Spr, 2 SPRAY BRIANNA DAILY 04/14/25 Home Meds Home medications reviewed. Current Medications Current Medications Medications (Trade) Dose Ordered Sig/Ronald Route PRN Reason Start Time Stop Time Status Last Admin Bumetanide (Bumex Injection) 1 mg BIDD IV 04/15/25 18:00 04/15/25 13:16 DC Calcium Acetate (Phoslo Capsule) 1,334 mg TIDWMEALS PO 04/15/25 18:00 04/16/25 12:54 Sodium Bicarbonate 650 mg BID PO 04/15/25 22:00 04/16/25 00:21 Review of Systems Constitutional: No symptom reported Ears, Nose, & Throat: No symptom reported Eyes: No symptom reported Neurological: No symptoms reported Pulmonary/Respiratory: Shortness of breath Cardiovascular: No symptom reported Gastrointestinal: No symptom reported Genitourinary: No symptom reported Musculoskeletal: No symptom reported Skin: No symptom reported Psychiatric: No symptom reported Endocrine: No symptom reported Hematologic/Lymphatic: No symptom reported Vital Signs Vital Signs Date Time Temp Pulse Resp B/P (MAP) Pulse Ox O2 Delivery O2 Flow Rate FiO2 04/16/25 13:00 97.8 80 16 155/84 (107) 92 97.8 04/16/25 10:00 Nasal Cannula* 5 40 Physical Exam General Appearance: Cooperative. Obese Pulmonary/Respiratory: Clear, bilateral breaths sounds. Cardiovascular/Chest: Regular rate and rhythm. Peripheral Pulses: 2+ Radial (R). 2+ Radial (L). 2+ Pedal (R). 2+ Pedal (L) Abdominal Exam: Normal bowel sounds. Ankle Exam: 2+ pitting edema Lower extremities: 2+ pitting edema Neuro/Mental Status: A/OX4, coherent. Thoughts/Psych: Normal thought pattern. Appropriate mood and affect. Good judgment and insight. Appearance: No acute distress. Skin Exam: Normal inspection. Normal color. Warm and dry. Labs/Diagnostic Data Labs Test 04/16/25 12:56 04/16/25 06:44 04/15/25 08:34 04/14/25 17:40 Range/Units POC Glucose 162 H 70-106 mg/dl White Blood Count 6.8 4.4-10.8 10^3/uL Red Blood Count 2.91 L 4.0-5.20 10^6/uL Hemoglobin 8.2 L 12.2-16.2 g/dL Hematocrit 24.2 L 36.0-46.0 % Mean Corpuscular Volume 83.1 80.0-100.0 fL Mean Corpuscular Hemoglobin 28.1 28.0-32.0 pg Mean Corpuscular Hemoglobin Concent 33.9 32.0-36.0 g/dL Red Cell Distribution Width 14.6 H 11.8-14.3 % Platelet Count 256 140-450 10^3/uL Mean Platelet Volume 7.4 6.9-10.8 fL Neutrophils (%) (Auto) 60.7 37.0-80.0 % Lymphocytes (%) (Auto) 24.9 10.0-50.0 % Monocytes (%) (Auto) 5.9 0.0-12.0 % Eosinophils (%) (Auto) 7.5 H 0.0-7.0 % Basophils (%) (Auto) 1.0 0.0-2.0 % Neutrophils # (Auto) 4.1 1.6-8.6 10 ^3/uL Lymphocytes # (Auto) 1.7 0.4-5.4 10 ^3/uL Monocytes # (Auto) 0.4 0-1.3 10 ^3/uL Eosinophils # (Auto) 0.5 0-0.8 10 ^3/uL Basophils # (Auto) 0.1 0-0.2 10 ^3/uL Nucleated Red Blood Cells 0.1 % Sodium Level 141 136-145 mmol/L Potassium Level 5.6 *H 3.5-5.1 mmol/L Chloride Level 110 H 98-107 mmol/L Carbon Dioxide Level 19 L 20-31 mmol/L Anion Gap 12 5-15 Blood Urea Nitrogen 77 H 9-23 mg/dL Creatinine 9.91 H 0.550-1.02 mg/dL Glomerular Filtration Rate Calc 4 >90 mL/min BUN/Creatinine Ratio 7.8 L 10.0-20.0 Serum Glucose 116 H 74-106 mg/dL Calcium Level 8.1 L 8.7-10.4 mg/dL Total Bilirubin 0.2 0.2-1.0 mg/dL Aspartate Amino Transferase (AST) 15 13-40 U/L Alanine Aminotransferase (ALT) 18 7-40 U/L Alkaline Phosphatase 68 46-116 U/L Total Protein 5.6 L 5.7-8.2 g/dL Albumin 3.6 3.2-4.8 g/dL Hemoglobin A1c 6.4 H <5.7 % A1C Phosphorus Level 8.2 H 2.4-5.1 mg/dL Iron Level 54 50-170 ug/dL Total Iron Binding Capacity 225 L 250-425 ug/dL Percent Iron Saturation 24.0 15-50 % Ferritin 221.7 10-291 ng/mL Vitamin D 25-Hydroxy 78.9 30.0-100 ng/mL Thyroid Stimulating Hormone (TSH) 3.71 0.55-4.78 uIU/mL Parathyroid Hormone (Intact) 378.6 H 18.4-80.1 pg/mL Hepatitis B Surface Antigen Negative Negative Urine Color Colorless Yellow Urine Clarity Clear Clear Urine pH 7.0 5.0-9.0 Urine Specific [place] 1.007 1.001-1.035 Urine Protein 2+ H Negative Urine Ketones Negative Negative Urine Blood 1+ H Negative /uL Urine Nitrite Negative Negative Urine Bilirubin Negative Negative Urine Urobilinogen Normal Negative mg/dL Urine Leukocyte Esterase 1+ Negative /uL Urine RBC 4 0 - 4 /hpf Urine Microscopic WBC 7 H 0-5 /HPF Urine Squamous Epithelial Cells Few <5 /hpf Urine Bacteria Few H None Seen /hpf Urine Glucose 3+ H Normal mg/dL Test 04/14/25 10:13 Range/Units B-Type Natriuretic Peptide 533.89 0-100 pg/mL Assessment Preprocedural cardiovascular examination Hypertension Moderate mitral valve regurgitation Dyslipidemia Hyperkalemia Acute on chronic anemia Chronic kidney disease, now requiring hemodialysis Type 2 diabetes mellitus Obesity Plan/Recommendation We will continue with the following plan/recommendations (Dr. Sandoval): A transthoracic echocardiogram reveals an EF of 55% with a small circumferential pericardial effusion noted, RVSP 42 mmHg. Revised cardiac risk index (Alex criteria): 1 point (1.1% risk of major cardiac event). There is no underlying history of congestive heart failure, coronary artery disease, or equivalent of cardiac symptoms. Prior to admission, the patient reports a good functional capacity. Per Cardiology standpoint, the patient is at an acceptable risk for moderate risk surgery. There is no additional cardiac workup indicated prior to surgery. Thank you for allowing us to care for this patient. Please call with any questions or concerns. Critical care time spent: 44 minutes This medical document was created using an electronic medical record system with voice recognition software and computerized dictation system. Although this document has been carefully reviewed, there might still be some phonetic and typographical errors. Occasional wrong-word or ``sound-alike substitutions may have occurred due to the inherent limitations of voice recognition software. These areas are purely typographical due to imperfections of the software programs and do not reflect any compromise in the patient's medical care. Rosmery toney read the chart carefully and recognize, using context, where these substitutions have occurred. Plan discussed with: Patient NYHA Physical activity limitations: NA Date of Service: Apr 16, 2025 Billing Provider: LINN MUJICA Cardiology Common Codes: [id number] INP/OBS CARE (High) Cardiology Consultation Codes: [id number] CONSULT <45MIN LINN MUJICA Apr 16, 2025 16:45
[2025-04-16] MEDS: SODIUM ZIRCONIUM CYCL 10 GM PAK PO ONE (17:02)
[2025-04-16] MEDS ORDERED: SODIUM ZIRCONIUM CYCL 10 GM PAK PO SCH (18:30)
[2025-04-16 20:11] LABS: Potassium 4.9 mmol/L (3.5-5.1); Sodium 142 mmol/L (136-145)
[2025-04-16 20:12] LABS: Anion Gap 14 (5-15)
[2025-04-16 20:17] LABS: BUN/Creatinine Ratio 7.9 (10.0-20.0)
[2025-04-16 20:18] LABS: Blood Urea Nitrogen 78 mg/dL (9-23); Calcium 8.6 mg/dL (8.7-10.4); Carbon Dioxide 20 mmol/L (20-31); Chloride 108 mmol/L (98-107); Glucose 137 mg/dL (74-106)
--- NOTE | 2025-04-16 20:54 | DVHPN2 ---
Progress Note Date Seen: Apr 16, 2025 Medical Necessity Reason Pt with a Central, PICC or Fol: No Subjective Patient reports: No new complaints, Feels better Review of Systems: Deferred Objective vital signs Vital Sign Date Time Temp Pulse Resp B/P (MAP) Pulse Ox O2 Delivery O2 Flow Rate FiO2 04/16/25 17:39 156/81 04/16/25 17:00 97.0 87 17 92 97.0 04/16/25 10:00 Nasal Cannula* 5 40 Total Intake and Output 04/15/25 04/15/25 04/16/25 15:00 23:00 07:00 Intake Total 100 ml 1250 ml 550 ml Balance 100 ml 1250 ml 550 ml medications Current Medications Medications Dose Ordered Sig/Ronald Route Start Time Stop Time Status Last Admin Dose Admin Aspirin 81 mg DAILY PO 04/15/25 10:00 04/15/25 08:24 81 MG Multivit/Ca Carb/ B Cmplx/FA/Prenat 1 tab DAILY PO 04/15/25 10:00 04/15/25 08:23 1 TAB Amlodipine Besylate 5 mg DAILY PO 04/15/25 10:00 04/15/25 08:24 5 MG Carvedilol 12.5 mg Q12HR PO 04/14/25 22:00 04/15/25 21:09 12.5 MG Atorvastatin Calcium 10 mg HS PO 04/14/25 22:00 04/15/25 21:09 10 MG Famotidine 20 mg DAILY IV 04/15/25 10:00 04/15/25 08:25 20 MG Clonidine HCl 0.1 mg Q4HP PRN PO 04/14/25 14:00 Diagnostic Test (Pha) 1 strip IQ4HR 04/14/25 16:00 04/16/25 20:00 1 STRIP Insulin Human Regular IQ4HR SC 04/14/25 16:00 04/16/25 20:34 3 UNITS Sodium Chloride 10 ml Q8HR IV 04/14/25 14:00 04/16/25 06:00 10 ML Acetaminophen/ Hydrocodone Bitart 1 tab Q4HP PRN PO 04/14/25 14:00 Ondansetron HCl 4 mg Q4HP PRN IV 04/14/25 14:00 Docusate Sodium 100 mg BIDPRN PRN PO 04/14/25 14:00 Acetaminophen 650 mg Q6HP PRN PO 04/14/25 14:00 Nitroglycerin 0.4 mg Q5MINP PRN SL 04/14/25 15:30 Morphine Sulfate 2 mg Q30M PRN IV 04/14/25 15:30 Albuterol 2.5 mg Q6HPRN PRN NEB 04/15/25 00:45 04/16/25 06:48 2.5 MG Bumetanide 2 mg BIDD IV 04/15/25 09:15 04/16/25 17:39 2 MG Calcium Acetate 1,334 mg TIDWMEALS PO 04/15/25 18:00 04/16/25 17:39 1,334 MG Epoetin Warren-epbx 10,000 unit TUTHSA SC 04/15/25 12:30 04/15/25 13:38 10,000 UNIT Sodium Bicarbonate 650 mg BID PO 04/15/25 22:00 04/16/25 00:21 650 MG Zirconium Oxide 10 gm BID PO 04/16/25 22:00 Examination: GENERAL:Normal, HEENT:Normal, NECK:Normal, LUNGS:Normal, CVS:Normal, ABDOMEN:Normal, MSK:Abnormal, SKIN:Normal, NEURO:Normal, :Normal laboratory and microbiology Laboratory Tests 04/16/25 19:19 04/16/25 06:44 Test 04/16/25 19:19 Range/Units Serum Glucose 137 H 74-106 mg/dL Problem List/Assessment/Plan Problem List/Assessment/Plan 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
[2025-04-16] MEDS: SODIUM ZIRCONIUM CYCL 10 GM PAK PO SCH (21:25)
[2025-04-16] MEDS: ACETAMINOPHEN 325 MG TAB PO PRN (23:45)
[2025-04-17] VITALS (12 sets, daily range): BP systolic 137–170; BP diastolic 77–89; PULSE 74–89; RESP 16–20; TEMP 97.2–98.9; O2SAT 88–97
[2025-04-17 07:29] LABS: Nucleated Red Blood Cells % 0.0 %
[2025-04-17 07:30] LABS: Hematocrit 23.0 % (36.0-46.0); Hemoglobin 7.8 g/dL (12.2-16.2); Mean Corpuscular Hemoglobin 28.0 pg (28.0-32.0); Mean Corpuscular Volume 82.1 fL (80.0-100.0)
[2025-04-17 07:33] LABS: Potassium 4.5 mmol/L (3.5-5.1); Sodium 144 mmol/L (136-145)
[2025-04-17 07:34] LABS: Anion Gap 14 (5-15); Carbon Dioxide 20 mmol/L (20-31)
[2025-04-17 07:39] LABS: BUN/Creatinine Ratio 7.3 (10.0-20.0); Glucose 88 mg/dL (74-106)
[2025-04-17 07:40] LABS: Blood Urea Nitrogen 74 mg/dL (9-23); Calcium 8.1 mg/dL (8.7-10.4); Chloride 110 mmol/L (98-107)
--- NOTE | 2025-04-17 16:08 | DVHPN2 ---
Progress Note Date Seen: Apr 17, 2025 Medical Necessity Reason Pt with a Central, PICC or Fol: Yes The following are medically ne: Central Line (HD catheter tunneled) Subjective Patient reports: Feels better Objective vital signs Vital Sign Date Time Temp Pulse Resp B/P (MAP) Pulse Ox O2 Delivery O2 Flow Rate FiO2 04/17/25 13:00 98.0 82 18 152/79 (103) 97 98.0 04/17/25 10:00 Nasal Cannula* 5 40 Total Intake and Output 04/16/25 04/16/25 04/17/25 15:00 23:00 07:00 Intake Total 50 ml 300 ml 250 ml Balance 50 ml 300 ml 250 ml medications Current Medications Medications Dose Ordered Sig/Ronald Route Start Time Stop Time Status Last Admin Dose Admin Aspirin 81 mg DAILY PO 04/15/25 10:00 04/15/25 08:24 81 MG Multivit/Ca Carb/ B Cmplx/FA/Prenat 1 tab DAILY PO 04/15/25 10:00 04/15/25 08:23 1 TAB Amlodipine Besylate 5 mg DAILY PO 04/15/25 10:00 04/15/25 08:24 5 MG Carvedilol 12.5 mg Q12HR PO 04/14/25 22:00 04/16/25 21:26 12.5 MG Atorvastatin Calcium 10 mg HS PO 04/14/25 22:00 04/16/25 21:26 10 MG Famotidine 20 mg DAILY IV 04/15/25 10:00 04/15/25 08:25 20 MG Diagnostic Test (Pha) 1 strip IQ4HR 04/14/25 16:00 04/17/25 15:58 1 STRIP Insulin Human Regular IQ4HR SC 04/14/25 16:00 04/17/25 12:08 2 UNITS Sodium Chloride 10 ml Q8HR IV 04/14/25 14:00 04/17/25 15:48 10 ML Acetaminophen/ Hydrocodone Bitart 1 tab Q4HP PRN PO 04/14/25 14:00 Ondansetron HCl 4 mg Q4HP PRN IV 04/14/25 14:00 Docusate Sodium 100 mg BIDPRN PRN PO 04/14/25 14:00 Acetaminophen 650 mg Q6HP PRN PO 04/14/25 14:00 04/16/25 23:45 650 MG Nitroglycerin 0.4 mg Q5MINP PRN SL 04/14/25 15:30 Morphine Sulfate 2 mg Q30M PRN IV 04/14/25 15:30 Albuterol 2.5 mg Q6HPRN PRN NEB 04/15/25 00:45 04/16/25 22:42 2.5 MG Bumetanide 2 mg BIDD IV 04/15/25 09:15 04/17/25 06:17 2 MG Calcium Acetate 1,334 mg TIDWMEALS PO 04/15/25 18:00 04/17/25 11:58 1,334 MG Epoetin Warren-epbx 10,000 unit TUTHSA SC 04/15/25 12:30 04/15/25 13:38 10,000 UNIT Sodium Bicarbonate 650 mg BID PO 04/15/25 22:00 04/16/25 21:26 650 MG Zirconium Oxide 10 gm BID PO 04/16/25 22:00 04/16/25 21:25 10 GM Clonidine HCl 0.1 mg Q4HP PRN PO 04/17/25 08:30 Examination: GENERAL:Normal, NECK:Normal, CVS:Normal, SKIN:Normal laboratory and microbiology Laboratory Tests 04/17/25 06:39 Test 04/17/25 06:39 Range/Units Serum Glucose 88 74-106 mg/dL Problem List/Assessment/Plan Problem List/Assessment/Plan 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 Hypertension Anemia due to chronic kidney disease Fluid overload Pericardial effusion Hyperphosphatemia Hyperkalemia Hemodialysis tolerated today add losartan to BP meds, coreg, norvasc, continue bumex 2mg po daily in outpatient calcium acetate with meals epogen 3x a week renal diet Chair time with [facility] Plan discussed with: Patient My Orders My Orders Orders - CARMITA WEST MD Procedure Category Date Status Time Hemodialysis Orders ORDERS 04/17/25 Transmitted 07:30 Dialysis Nursing SYLVIA 04/17/25 In Process Message 07:30 Document Fluid Input SYLVIA 04/17/25 In Process And Outpu 07:30 Total Time (mins): CARMITA WEST MD Apr 17, 2025 16:08
--- NOTE | 2025-04-17 17:56 | DVHPNRES ---
Progress Note Date Seen: Apr 17, 2025 Resident Creating Document: PRECIOUS TEMPLE RESIDENT Medical Necessity Reason Pt with a Central, PICC or Fol: Yes The following are medically ne: Central Line Subjective Review of Systems The patient is a 51-year-old female with past medical history of chronic kidney failure stage IV, diabetes mellitus, and hypertension who presented to [facility] ED with complaint of shortness of breaths. Patient reports she has been experiencing intermittent shortness of breaths for the past 2 months which has increased in the past few days. Patient said she went to [place] for a week and she bought [id number] inhalers which helped a bit but yesterday it did not which is why she came to the hospital. On inquiry she says she has some coughing with clear phlegm production. She reports having no sick contacts, denies any fever, chills, diaphoresis, chest pain, headache, dizziness or change in bowel and bladder habits. Past Medical History: CKD stage 4, DM, HTN Past Surgical History: Denies all surgeries Family History: Reviewed, noncontributory to the management of this case. Past Social History: The patient lives at home, denies smoking, alcohol or illicit drugs abuse. Allergies: None ROS: 04/15/2025: Patient was seen and examined by me at the bedside. Overnight events were reviewed. Patient reports she feels better today with oxygen. We have administered 5 L has a saturation was 94%. Her chest x-ray revealed pulmonary edema and acute blunting of the costovertebral angle, suggesting pleural effusion. Nephrology consult has been placed. Administered Bumex 1 mg b.i.d., put her on strict input-output monitoring, fluid restriction and as per nephron consulted the surgeon for peritoneal dialysis catheter for hemodialysis per Nephrology as the patient is CKD stage 4. Ordered Hb1AC, pending. also ordered MRSA nares, TSH, COVID/ flu tests, liver panel, PTH, vitamin-D, 04/16/25: Patient was seen and examined by me at the bedside. Overnight events were reviewed. Today a tunnel catheter was placed on the right side of the chest. Surgery since she was a poor candidate for peritoneal dialysis with a high rate of dysfunction with possible scar tissue. Patient is still requiring 5 L of oxygen. Her shortness of breath increases on exertion. We are awaiting chair time for hemodialysis. Patient's potassium was 5.6 today and we started her on Lokelma b.i.d.. 04/17/2024 patient was seen and examined by me at the bedside. Overnight events were reviewed. Patient reports that there is slight pain at the tunnel catheter site which was relieved by Tylenol. she underwent hemodialysis today which she tolerated well. Waiting for chair time at [facility] dialysis. Objective vital signs Vital Sign Date Time Temp Pulse Resp B/P (MAP) Pulse Ox O2 Delivery O2 Flow Rate FiO2 04/17/25 16:59 98.7 82 16 150/79 (102) 93 98.7 04/17/25 10:00 Nasal Cannula* 5 40 Total Intake and Output 04/16/25 04/16/25 04/17/25 15:00 23:00 07:00 Intake Total 50 ml 300 ml 250 ml Balance 50 ml 300 ml 250 ml medications Current Medications Medications Dose Ordered Sig/Ronald Route Start Time Stop Time Status Last Admin Dose Admin Aspirin 81 mg DAILY PO 04/15/25 10:00 04/15/25 08:24 81 MG Multivit/Ca Carb/ B Cmplx/FA/Prenat 1 tab DAILY PO 04/15/25 10:00 04/15/25 08:23 1 TAB Amlodipine Besylate 5 mg DAILY PO 04/15/25 10:00 04/15/25 08:24 5 MG Carvedilol 12.5 mg Q12HR PO 04/14/25 22:00 04/16/25 21:26 12.5 MG Atorvastatin Calcium 10 mg HS PO 04/14/25 22:00 04/16/25 21:26 10 MG Famotidine 20 mg DAILY IV 04/15/25 10:00 04/15/25 08:25 20 MG Diagnostic Test (Pha) 1 strip IQ4HR 04/14/25 16:00 04/17/25 15:58 1 STRIP Insulin Human Regular IQ4HR SC 04/14/25 16:00 04/17/25 12:08 2 UNITS Sodium Chloride 10 ml Q8HR IV 04/14/25 14:00 04/17/25 15:48 10 ML Acetaminophen/ Hydrocodone Bitart 1 tab Q4HP PRN PO 04/14/25 14:00 Ondansetron HCl 4 mg Q4HP PRN IV 04/14/25 14:00 Docusate Sodium 100 mg BIDPRN PRN PO 04/14/25 14:00 Acetaminophen 650 mg Q6HP PRN PO 04/14/25 14:00 04/16/25 23:45 650 MG Nitroglycerin 0.4 mg Q5MINP PRN SL 04/14/25 15:30 Morphine Sulfate 2 mg Q30M PRN IV 04/14/25 15:30 Albuterol 2.5 mg Q6HPRN PRN NEB 04/15/25 00:45 04/16/25 22:42 2.5 MG Bumetanide 2 mg BIDD IV 04/15/25 09:15 04/17/25 06:17 2 MG Calcium Acetate 1,334 mg TIDWMEALS PO 04/15/25 18:00 04/17/25 11:58 1,334 MG Epoetin Warren-epbx 10,000 unit TUTHSA SC 04/15/25 12:30 04/15/25 13:38 10,000 UNIT Sodium Bicarbonate 650 mg BID PO 04/15/25 22:00 04/16/25 21:26 650 MG Clonidine HCl 0.1 mg Q4HP PRN PO 04/17/25 08:30 Losartan Potassium 50 mg DAILY PO 04/18/25 10:00 Examination General Appearance: Alert, Oriented X3, Cooperative, No acute distress HEENT: Atraumatic, PERRLA, EOMI, Mucous membr. moist/pink Respiratory: Normal air movement, Bilateral bibasilar crackles requiring 5 L of oxygen via nasal cannula, Cardiovascular: Regular rate, Normal S1, Normal S2, No murmurs Abdominal: Normal bowel sounds, Soft, No tenderness, No hepatospenomegaly, No masses Extremities: No clubbing, No cyanosis, Normal pulses, +1 pitting edema in bilateral legs Skin: No rashes, No breakdown, No significant lesion, tunnel catheter placed on right chest for HD Neuro: Normal speech, Normal tone, Sensation intact, Cranial nerves 3-12 NL, Reflexes 2+, Other (Generalized weakness) Psych/Mental Status: Mental status NL, Mood NL laboratory and microbiology Laboratory Tests 04/17/25 06:39 Test 04/17/25 06:39 Range/Units Serum Glucose 88 74-106 mg/dL Labs and/or images reviewed: Labs reviewed by me, Image(s) reviewed by me Problem List/Assessment/Plan Problem List/Assessment/Plan Pulmonary edema #Small bilateral pleural effusions -x-ray: Pulmonary edema, Small bilateral pleural effusions -furosemide -Breathing treatment #CKD stage 4 -Nephrology consult suggested peritoneal dialysis catheter for hemodialysis -Bumex 2 mg b.i.d. IV -surg consulted for peritoneal dialysis catheter for HD suggested: Due to the lower midline incision most likely is not a very good candidate for peritoneal dialysis with a high rate of dysfunction with possible scar tissue. Would recommend vein mapping for fistula creation as well. If needs urgent dialysis we will need tunneled dialysis catheter. We will need cardiac clearance -IR consulted for vein mapping -patient received tunnel catheter, awaiting hemodialysis -cardiac clearance received for AV fistula formation -Nephrology 04/17/25- Hemodialysis tolerated today; add losartan to BP meds, coreg, norvasc, continue bumex 2mg po daily in outpatient; calcium acetate with meals; epogen 3x a week; renal diet #Uncontrolled diabetes mellitus, HbA1c 6.4 -mild Sliding scale insulin #Hyperkalemia -04/15/2025, 5.9- per protocol - 10 units insulin with dextrose, albuterol, calcium gluconate -potassium 5.6-Lokelma b.i.d. started #Anemia of chronic disease -monitor H&H #asymptomatic UTI -UA bacteria few, WBC 7, leukocyte esterase 1+, RBC 4+, protein 2+, blood 1+ # secondary hyperparathyroidism due to CKD -calcium acetate tid with meals GI prophylaxis: not indicated DVT prophylaxis: ambulating Diet: renal diet Goals of care discussed with the patient for more than 27 minutes: Full code status Case discussed with Dr. Carpenter patient and nurse. Plan discussed with: Patient, Other (rn) Date of Service: Apr 17, 2025 Billing Provider: SHON LLANOS MD Common Visit Codes: [id number] INP/OBS CARE(HIGH) PRECIOUS TEMPLE Apr 17, 2025 17:56 SHON LLANOS MD Apr 28, 2025 02:54
[2025-04-18] VITALS (11 sets, daily range): BP systolic 146–171; BP diastolic 78–96; PULSE 74–96; RESP 16–18; TEMP 97.6–98.7; O2SAT 90–98
--- NOTE | 2025-04-18 07:19 | ECG ---
[facility] Test Date: 2025-04-16 Test Time: 16:23:02 Pat Name: RADHA VALLEJO Department: Respiratoy Room: 0279T Gender: F Manager Fixed Income: AMY : 1970 Requested By: PRECIOUS TEMPLE Order Number: [id number] Reading MD: Franki Sandoval Measurements Intervals [place] Rate: 81 P: 46 WV: 164 QRS: 5 QRSD: 101 T: 0 QT: 409 QTc: 475 Interpretive Statements Sinus rhythm Nonspecific T abnormalities, lateral leads Electronically Signed On 04-21-2025 18:38:07 PDT by Franki Sandoval Please click the below link to view image of tracing.
[2025-04-18 09:08] LABS: Hematocrit 27.0 % (36.0-46.0); Hemoglobin 9.2 g/dL (12.2-16.2); Mean Corpuscular Hemoglobin 28.0 pg (28.0-32.0); Mean Corpuscular Volume 81.9 fL (80.0-100.0); Nucleated Red Blood Cells % 0.0 %
[2025-04-18 09:13] LABS: Anion Gap 13 (5-15); Carbon Dioxide 25 mmol/L (20-31); Chloride 105 mmol/L (98-107); Potassium 4.2 mmol/L (3.5-5.1); Sodium 143 mmol/L (136-145)
[2025-04-18 09:19] LABS: BUN/Creatinine Ratio 6.1 (10.0-20.0)
[2025-04-18 09:20] LABS: Blood Urea Nitrogen 47 mg/dL (9-23); Calcium 8.4 mg/dL (8.7-10.4); Glucose 172 mg/dL (74-106)
[2025-04-18] MEDS: LOSARTAN POTASSIUM 50 MG TAB PO SCH (09:32)
--- NOTE | 2025-04-18 11:54 | DVHPN2 ---
Progress Note Date Seen: Apr 18, 2025 Medical Necessity Reason Pt with a Central, PICC or Fol: Yes The following are medically ne: Central Line (tunnel HD catheter) Subjective Patient reports: Feels better Objective vital signs Vital Sign Date Time Temp Pulse Resp B/P (MAP) Pulse Ox O2 Delivery O2 Flow Rate FiO2 04/18/25 10:30 80 04/18/25 10:00 96 Room Air 0.0 04/18/25 10:00 21 04/18/25 09:32 164/89 04/18/25 08:50 98.1 98.1 04/18/25 08:00 18 Total Intake and Output 04/17/25 04/17/25 04/18/25 15:00 23:00 07:00 Intake Total 50 ml 2602 ml 200 ml Balance 50 ml 2602 ml 200 ml medications Current Medications Medications Dose Ordered Sig/Ronald Route Start Time Stop Time Status Last Admin Dose Admin Aspirin 81 mg DAILY PO 04/15/25 10:00 04/18/25 09:31 81 MG Multivit/Ca Carb/ B Cmplx/FA/Prenat 1 tab DAILY PO 04/15/25 10:00 04/18/25 09:31 1 TAB Amlodipine Besylate 5 mg DAILY PO 04/15/25 10:00 04/18/25 09:31 5 MG Carvedilol 12.5 mg Q12HR PO 04/14/25 22:00 04/18/25 09:30 12.5 MG Atorvastatin Calcium 10 mg HS PO 04/14/25 22:00 04/17/25 21:23 10 MG Famotidine 20 mg DAILY IV 04/15/25 10:00 04/18/25 09:30 20 MG Diagnostic Test (Pha) 1 strip IQ4HR 04/14/25 16:00 04/18/25 08:00 1 STRIP Insulin Human Regular IQ4HR SC 04/14/25 16:00 04/18/25 08:00 2 UNITS Sodium Chloride 10 ml Q8HR IV 04/14/25 14:00 04/18/25 06:08 10 ML Acetaminophen/ Hydrocodone Bitart 1 tab Q4HP PRN PO 04/14/25 14:00 Ondansetron HCl 4 mg Q4HP PRN IV 04/14/25 14:00 Docusate Sodium 100 mg BIDPRN PRN PO 04/14/25 14:00 Acetaminophen 650 mg Q6HP PRN PO 04/14/25 14:00 04/16/25 23:45 650 MG Nitroglycerin 0.4 mg Q5MINP PRN SL 04/14/25 15:30 Morphine Sulfate 2 mg Q30M PRN IV 04/14/25 15:30 Albuterol 2.5 mg Q6HPRN PRN NEB 04/15/25 00:45 04/16/25 22:42 2.5 MG Bumetanide 2 mg BIDD IV 04/15/25 09:15 04/18/25 06:07 2 MG Calcium Acetate 1,334 mg TIDWMEALS PO 04/15/25 18:00 04/18/25 08:01 1,334 MG Epoetin Warren-epbx 10,000 unit TUTHSA SC 04/15/25 12:30 04/15/25 13:38 10,000 UNIT Sodium Bicarbonate 650 mg BID PO 04/15/25 22:00 04/18/25 09:31 650 MG Clonidine HCl 0.1 mg Q4HP PRN PO 04/17/25 08:30 Losartan Potassium 50 mg DAILY PO 04/18/25 10:00 04/18/25 09:32 50 MG Examination: GENERAL:Normal, CVS:Normal, ABDOMEN:Normal, SKIN:Normal laboratory and microbiology Laboratory Tests 04/18/25 08:12 Test 04/18/25 08:12 Range/Units Serum Glucose 172 H 74-106 mg/dL Problem List/Assessment/Plan Problem List/Assessment/Plan CKD 5 with progression to end-stage renal disease Hypertension Anemia due to chronic kidney disease Fluid overload Pericardial effusion Hyperphosphatemia Hyperkalemia Hemodialysis tomorrow losartan to BP meds, coreg, norvasc, continue bumex 2mg po daily in outpatient calcium acetate with meals epogen 3x a week renal diet rec vein mapping and AVF inpatient if can be arranged Chair time with [facility] dispo after confirmation Plan discussed with: Patient My Orders My Orders Orders - CARMITA WEST MD Procedure Category Date Status Time Losartan Tablet PHA 04/18/25 In Process (Cozaar Tablet) 10:00 Total Time (mins): 36 CARMITA WEST MD Apr 18, 2025 11:54
--- NOTE | 2025-04-18 13:40 | DVHPNRES ---
Progress Note Date Seen: Apr 18, 2025 Resident Creating Document: PRECIOUS TEMPLE RESIDENT Medical Necessity Reason Pt with a Central, PICC or Fol: Yes The following are medically ne: Central Line (tunnel HD catheter) Subjective Review of Systems The patient is a 51-year-old female with past medical history of chronic kidney failure stage IV, diabetes mellitus, and hypertension who presented to [facility] ED with complaint of shortness of breaths. Patient reports she has been experiencing intermittent shortness of breaths for the past 2 months which has increased in the past few days. Patient said she went to [place] for a week and she bought [id number] inhalers which helped a bit but yesterday it did not which is why she came to the hospital. On inquiry she says she has some coughing with clear phlegm production. She reports having no sick contacts, denies any fever, chills, diaphoresis, chest pain, headache, dizziness or change in bowel and bladder habits. Past Medical History: CKD stage 4, DM, HTN Past Surgical History: Denies all surgeries Family History: Reviewed, noncontributory to the management of this case. Past Social History: The patient lives at home, denies smoking, alcohol or illicit drugs abuse. Allergies: None ROS: 04/15/2025: Patient was seen and examined by me at the bedside. Overnight events were reviewed. Patient reports she feels better today with oxygen. We have administered 5 L has a saturation was 94%. Her chest x-ray revealed pulmonary edema and acute blunting of the costovertebral angle, suggesting pleural effusion. Nephrology consult has been placed. Administered Bumex 1 mg b.i.d., put her on strict input-output monitoring, fluid restriction and as per nephron consulted the surgeon for peritoneal dialysis catheter for hemodialysis per Nephrology as the patient is CKD stage 4. Ordered Hb1AC, pending. also ordered MRSA nares, TSH, COVID/ flu tests, liver panel, PTH, vitamin-D, 04/16/25: Patient was seen and examined by me at the bedside. Overnight events were reviewed. Today a tunnel catheter was placed on the right side of the chest. Surgery since she was a poor candidate for peritoneal dialysis with a high rate of dysfunction with possible scar tissue. Patient is still requiring 5 L of oxygen. Her shortness of breath increases on exertion. We are awaiting chair time for hemodialysis. Patient's potassium was 5.6 today and we started her on Lokelma b.i.d.. 04/17/2025: patient was seen and examined by me at the bedside. Overnight events were reviewed. Patient reports that there is slight pain at the tunnel catheter site which was relieved by Tylenol. she underwent hemodialysis today which she tolerated well. Waiting for chair time at [facility] dialysis. 04/18/2025: patient reports that she feels much better after the dialysis yesterday. She is no longer on oxygen like she was yesterday on 5 L. she reports that she is breathing much better. She did have 1 episode of vomiting after the dialysis though which contained the food particles she had eaten. Nephrology consult suggests hemodialysis tomorrow as well. We are waiting for chair time at [facility]. Objective vital signs Vital Sign Date Time Temp Pulse Resp B/P (MAP) Pulse Ox O2 Delivery O2 Flow Rate FiO2 04/18/25 13:00 97.6 76 16 160/87 (111) 98 97.6 04/18/25 10:00 Room Air 0.0 04/18/25 10:00 21 Total Intake and Output 04/17/25 04/17/25 04/18/25 15:00 23:00 07:00 Intake Total 50 ml 2602 ml 200 ml Balance 50 ml 2602 ml 200 ml medications Current Medications Medications Dose Ordered Sig/Ronald Route Start Time Stop Time Status Last Admin Dose Admin Aspirin 81 mg DAILY PO 04/15/25 10:00 04/18/25 09:31 81 MG Multivit/Ca Carb/ B Cmplx/FA/Prenat 1 tab DAILY PO 04/15/25 10:00 04/18/25 09:31 1 TAB Amlodipine Besylate 5 mg DAILY PO 04/15/25 10:00 04/18/25 09:31 5 MG Carvedilol 12.5 mg Q12HR PO 04/14/25 22:00 04/18/25 09:30 12.5 MG Atorvastatin Calcium 10 mg HS PO 04/14/25 22:00 04/17/25 21:23 10 MG Famotidine 20 mg DAILY IV 04/15/25 10:00 04/18/25 09:30 20 MG Diagnostic Test (Pha) 1 strip IQ4HR 04/14/25 16:00 04/18/25 11:53 1 STRIP Insulin Human Regular IQ4HR SC 04/14/25 16:00 04/18/25 08:00 2 UNITS Sodium Chloride 10 ml Q8HR IV 04/14/25 14:00 04/18/25 06:08 10 ML Acetaminophen/ Hydrocodone Bitart 1 tab Q4HP PRN PO 04/14/25 14:00 Ondansetron HCl 4 mg Q4HP PRN IV 04/14/25 14:00 Docusate Sodium 100 mg BIDPRN PRN PO 04/14/25 14:00 Acetaminophen 650 mg Q6HP PRN PO 04/14/25 14:00 04/16/25 23:45 650 MG Nitroglycerin 0.4 mg Q5MINP PRN SL 04/14/25 15:30 Morphine Sulfate 2 mg Q30M PRN IV 04/14/25 15:30 Albuterol 2.5 mg Q6HPRN PRN NEB 04/15/25 00:45 04/16/25 22:42 2.5 MG Bumetanide 2 mg BIDD IV 04/15/25 09:15 04/18/25 06:07 2 MG Calcium Acetate 1,334 mg TIDWMEALS PO 04/15/25 18:00 04/18/25 08:01 1,334 MG Epoetin Warren-epbx 10,000 unit TUTHSA SC 04/15/25 12:30 04/15/25 13:38 10,000 UNIT Sodium Bicarbonate 650 mg BID PO 04/15/25 22:00 04/18/25 09:31 650 MG Clonidine HCl 0.1 mg Q4HP PRN PO 04/17/25 08:30 Losartan Potassium 50 mg DAILY PO 04/18/25 10:00 04/18/25 09:32 50 MG Examination General Appearance: Alert, Oriented X3, Cooperative, No acute distress HEENT: Atraumatic, PERRLA, EOMI, Mucous membr. moist/pink Respiratory: Normal air movement, Bilateral bibasilar crackles Cardiovascular: Regular rate, Normal S1, Normal S2, No murmurs Abdominal: Normal bowel sounds, Soft, No tenderness, No hepatospenomegaly, No masses Extremities: No clubbing, No cyanosis, Normal pulses, +1 pitting edema in bilateral legs Skin: No rashes, No breakdown, No significant lesion, tunnel catheter placed on right chest for HD Neuro: Normal speech, Normal tone, Sensation intact, Cranial nerves 3-12 NL, Reflexes 2+, Other (Generalized weakness) Psych/Mental Status: Mental status NL, Mood NL laboratory and microbiology Laboratory Tests 04/18/25 08:12 Test 04/18/25 08:12 Range/Units Serum Glucose 172 H 74-106 mg/dL Labs and/or images reviewed: Labs reviewed by me, Image(s) reviewed by me Problem List/Assessment/Plan Problem List/Assessment/Plan #CKD stage 4 now ESRD #Hyperphosphatemia #Hyperkalemia -Nephrology consult suggested peritoneal dialysis catheter for hemodialysis -Bumex 2 mg b.i.d. IV -surg consulted for peritoneal dialysis catheter for HD suggested: Due to the lower midline incision most likely is not a very good candidate for peritoneal dialysis with a high rate of dysfunction with possible scar tissue. Would recommend vein mapping for fistula creation as well. If needs urgent dialysis we will need tunneled dialysis catheter. We will need cardiac clearance -IR consulted for vein mapping -patient received tunnel catheter, awaiting hemodialysis -cardiac clearance received for AV fistula formation -Nephrology 04/17/25- Hemodialysis tolerated today; add losartan to BP meds, coreg, norvasc, continue bumex 2mg po daily in outpatient; calcium acetate with meals; epogen 3x a week; renal diet - 04/18/2025- nephrology suggests Hemodialysis tomorrow #Pulmonary edema #Small bilateral pleural effusions -x-ray: Pulmonary edema, Small bilateral pleural effusions -furosemide -Breathing treatment #Uncontrolled diabetes mellitus, HbA1c 6.4 -mild Sliding scale insulin #Hyperkalemia -04/15/2025, 5.9- per protocol - 10 units insulin with dextrose, albuterol, calcium gluconate -potassium 5.6-Lokelma b.i.d. started #Anemia of chronic disease (ckd) -monitor H&H #asymptomatic UTI -UA bacteria few, WBC 7, leukocyte esterase 1+, RBC 4+, protein 2+, blood 1+ #secondary hyperparathyroidism due to CKD -calcium acetate tid with meals GI prophylaxis: not indicated DVT prophylaxis: ambulating Diet: renal diet Goals of care discussed with the patient for more than 27 minutes: Full code status Case discussed with Dr. Carpenter patient and nurse. Plan discussed with: Patient, Other (rn) Date of Service: Apr 18, 2025 Billing Provider: SHON LLANOS MD Common Visit Codes: [id number] INP/OBS CARE(HIGH) PRECIOUS TEMPLE RESIDENT Apr 18, 2025 13:40 SHON LLANOS MD Apr 28, 2025 03:19
[2025-04-19] VITALS (10 sets, daily range): BP systolic 139–170; BP diastolic 74–93; PULSE 75–86; RESP 16–20; TEMP 97.4–98.2; O2SAT 91–98
[2025-04-19 08:05] LABS: Hematocrit 25.8 % (36.0-46.0); Hemoglobin 8.8 g/dL (12.2-16.2); Mean Corpuscular Hemoglobin 28.0 pg (28.0-32.0); Mean Corpuscular Volume 81.9 fL (80.0-100.0); Nucleated Red Blood Cells % 0.0 %
[2025-04-19 08:06] LABS: Chloride 107 mmol/L (98-107); Potassium 4.3 mmol/L (3.5-5.1)
[2025-04-19 08:07] LABS: Anion Gap 11 (5-15); Carbon Dioxide 27 mmol/L (20-31)
[2025-04-19 08:12] LABS: BUN/Creatinine Ratio 5.8 (10.0-20.0)
[2025-04-19 08:19] LABS: Blood Urea Nitrogen 47 mg/dL (9-23); Calcium 8.4 mg/dL (8.7-10.4); Glucose 109 mg/dL (74-106); Sodium 145 mmol/L (136-145)
[2025-04-19] MEDS: ONDANSETRON HCL 4 MG/2 ML VIAL IV PRN (13:29)
[2025-04-19] MEDS: MUPIROCIN 2% OINT 15gm or 22gm FOR MRSA NARES EACHNOSTRI SCH (15:00)
--- NOTE | 2025-04-19 15:43 | DVHPN2 ---
Progress Note Date Seen: Apr 19, 2025 Medical Necessity Reason Pt with a Central, PICC or Fol: Yes The following are medically ne: Central Line (tunnel HD catheter) Subjective Patient reports: Feels worse (had vomiting during HD) Objective vital signs Vital Sign Date Time Temp Pulse Resp B/P (MAP) Pulse Ox O2 Delivery O2 Flow Rate FiO2 04/19/25 15:30 86 170/69 04/19/25 13:00 97.4 20 91 97.4 04/19/25 10:00 Room Air* 0 21 Total Intake and Output 04/18/25 04/18/25 04/19/25 15:00 23:00 07:00 Intake Total 720 ml 1600 ml Balance 720 ml 1600 ml medications Current Medications Medications Dose Ordered Sig/Ronald Route Start Time Stop Time Status Last Admin Dose Admin Aspirin 81 mg DAILY PO 04/15/25 10:00 04/19/25 15:30 81 MG Multivit/Ca Carb/ B Cmplx/FA/Prenat 1 tab DAILY PO 04/15/25 10:00 04/19/25 15:29 1 TAB Amlodipine Besylate 5 mg DAILY PO 04/15/25 10:00 04/19/25 15:29 5 MG Carvedilol 12.5 mg Q12HR PO 04/14/25 22:00 04/18/25 22:09 12.5 MG Atorvastatin Calcium 10 mg HS PO 04/14/25 22:00 04/18/25 22:09 10 MG Famotidine 20 mg DAILY IV 04/15/25 10:00 04/19/25 15:29 20 MG Diagnostic Test (Pha) 1 strip IQ4HR 04/14/25 16:00 04/19/25 12:04 1 STRIP Insulin Human Regular IQ4HR SC 04/14/25 16:00 04/18/25 22:15 2 UNITS Sodium Chloride 10 ml Q8HR IV 04/14/25 14:00 04/19/25 15:00 10 ML Acetaminophen/ Hydrocodone Bitart 1 tab Q4HP PRN PO 04/14/25 14:00 Ondansetron HCl 4 mg Q4HP PRN IV 04/14/25 14:00 04/19/25 13:29 4 MG Docusate Sodium 100 mg BIDPRN PRN PO 04/14/25 14:00 Acetaminophen 650 mg Q6HP PRN PO 04/14/25 14:00 04/16/25 23:45 650 MG Nitroglycerin 0.4 mg Q5MINP PRN SL 04/14/25 15:30 Morphine Sulfate 2 mg Q30M PRN IV 04/14/25 15:30 Albuterol 2.5 mg Q6HPRN PRN NEB 04/15/25 00:45 04/16/25 22:42 2.5 MG Bumetanide 2 mg BIDD IV 04/15/25 09:15 04/19/25 05:53 2 MG Calcium Acetate 1,334 mg TIDWMEALS PO 04/15/25 18:00 04/19/25 12:07 1,334 MG Epoetin Warren-epbx 10,000 unit TUTHSA SC 04/15/25 12:30 04/19/25 09:49 10,000 UNIT Sodium Bicarbonate 650 mg BID PO 04/15/25 22:00 04/19/25 15:30 650 MG Clonidine HCl 0.1 mg Q4HP PRN PO 04/17/25 08:30 04/18/25 22:08 0.1 MG Losartan Potassium 50 mg DAILY PO 04/18/25 10:00 04/19/25 15:29 50 MG Mupirocin 1 applic BID EACHNOSTRI 04/19/25 13:30 04/24/25 13:29 Examination: GENERAL:Normal, CVS:Normal, SKIN:Normal laboratory and microbiology Laboratory Tests 04/19/25 07:25 Test 04/19/25 07:25 Range/Units Serum Glucose 109 H 74-106 mg/dL Microbiology Date/Time Source Procedure Growth Status 04/19/25 09:30 Nose MRSA Screen - Final Methicillin Resistant S.aureus Complete Problem List/Assessment/Plan Problem List/Assessment/Plan CKD 5 with progression to end-stage renal disease Hypertension Anemia due to chronic kidney disease Fluid overload Pericardial effusion Hyperphosphatemia Hyperkalemia Hemodialysis today, does not tolerate UF losartan to BP meds, coreg, norvasc, continue bumex 2mg po daily in outpatient calcium acetate with meals epogen 3x a week renal diet rec vein mapping ( ordered ) and AVF inpatient if can be arranged Chair time with [facility] dispo after confirmation Plan discussed with: Patient Total Time (mins): 33 CARMITA WEST MD Apr 19, 2025 15:43
--- NOTE | 2025-04-19 16:30 | DVHPNRES ---
Progress Note Date Seen: Apr 19, 2025 Resident Creating Document: PRECIOUS TEMPLE RESIDENT Medical Necessity Reason Pt with a Central, PICC or Fol: Yes The following are medically ne: Central Line (tunnel HD catheter) Subjective Review of Systems The patient is a 51-year-old female with past medical history of chronic kidney failure stage IV, diabetes mellitus, and hypertension who presented to [facility] ED with complaint of shortness of breaths. Patient reports she has been experiencing intermittent shortness of breaths for the past 2 months which has increased in the past few days. Patient said she went to [place] for a week and she bought [id number]-[id number] inhalers which helped a bit but yesterday it did not which is why she came to the hospital. On inquiry she says she has some coughing with clear phlegm production. She reports having no sick contacts, denies any fever, chills, diaphoresis, chest pain, headache, dizziness or change in bowel and bladder habits. Past Medical History: CKD stage 4, DM, HTN Past Surgical History: Denies all surgeries Family History: Reviewed, noncontributory to the management of this case. Past Social History: The patient lives at home, denies smoking, alcohol or illicit drugs abuse. Allergies: None ROS: 04/15/2025: Patient was seen and examined by me at the bedside. Overnight events were reviewed. Patient reports she feels better today with oxygen. We have administered 5 L has a saturation was 94%. Her chest x-ray revealed pulmonary edema and acute blunting of the costovertebral angle, suggesting pleural effusion. Nephrology consult has been placed. Administered Bumex 1 mg b.i.d., put her on strict input-output monitoring, fluid restriction and as per nephron consulted the surgeon for peritoneal dialysis catheter for hemodialysis per Nephrology as the patient is CKD stage 4. Ordered Hb1AC, pending. also ordered MRSA nares, TSH, COVID/ flu tests, liver panel, PTH, vitamin-D, 04/16/25: Patient was seen and examined by me at the bedside. Overnight events were reviewed. Today a tunnel catheter was placed on the right side of the chest. Surgery since she was a poor candidate for peritoneal dialysis with a high rate of dysfunction with possible scar tissue. Patient is still requiring 5 L of oxygen. Her shortness of breath increases on exertion. We are awaiting chair time for hemodialysis. Patient's potassium was 5.6 today and we started her on Lokelma b.i.d.. 04/17/2025: patient was seen and examined by me at the bedside. Overnight events were reviewed. Patient reports that there is slight pain at the tunnel catheter site which was relieved by Tylenol. she underwent hemodialysis today which she tolerated well. Waiting for chair time at [facility] dialysis. 04/18/2025: patient reports that she feels much better after the dialysis yesterday. She is no longer on oxygen like she was yesterday on 5 L. she reports that she is breathing much better. She did have 1 episode of vomiting after the dialysis though which contained the food particles she had eaten. Nephrology consult suggests hemodialysis tomorrow as well. We are waiting for chair time at [facility] dialysis. 04/19/2025: Patient was seen and examined by me at the bedside. Overnight events were reviewed. Patient has no new active complaints. Hemodialysis done today, does not tolerate UF. She has been accepted by [facility] for chair time on Monday, and Monday. Her next hemodialysis will be on Monday at 1:15 p.m. Possible AV fistula formed by vascular surgeon on Monday. Objective vital signs Vital Sign Date Time Temp Pulse Resp B/P (MAP) Pulse Ox O2 Delivery O2 Flow Rate FiO2 04/19/25 15:30 86 170/69 04/19/25 13:00 97.4 20 91 97.4 04/19/25 10:00 Room Air* 0 21 Total Intake and Output 04/18/25 04/18/25 04/19/25 15:00 23:00 07:00 Intake Total 720 ml 1600 ml Balance 720 ml 1600 ml medications Current Medications Medications Dose Ordered Sig/Ronald Route Start Time Stop Time Status Last Admin Dose Admin Aspirin 81 mg DAILY PO 04/15/25 10:00 04/19/25 15:30 81 MG Multivit/Ca Carb/ B Cmplx/FA/Prenat 1 tab DAILY PO 04/15/25 10:00 04/19/25 15:29 1 TAB Amlodipine Besylate 5 mg DAILY PO 04/15/25 10:00 04/19/25 15:29 5 MG Carvedilol 12.5 mg Q12HR PO 04/14/25 22:00 04/18/25 22:09 12.5 MG Atorvastatin Calcium 10 mg HS PO 04/14/25 22:00 04/18/25 22:09 10 MG Famotidine 20 mg DAILY IV 04/15/25 10:00 04/19/25 15:29 20 MG Diagnostic Test (Pha) 1 strip IQ4HR 04/14/25 16:00 04/19/25 12:04 1 STRIP Insulin Human Regular IQ4HR SC 04/14/25 16:00 04/18/25 22:15 2 UNITS Sodium Chloride 10 ml Q8HR IV 04/14/25 14:00 04/19/25 15:00 10 ML Acetaminophen/ Hydrocodone Bitart 1 tab Q4HP PRN PO 04/14/25 14:00 Ondansetron HCl 4 mg Q4HP PRN IV 04/14/25 14:00 04/19/25 13:29 4 MG Docusate Sodium 100 mg BIDPRN PRN PO 04/14/25 14:00 Acetaminophen 650 mg Q6HP PRN PO 04/14/25 14:00 04/16/25 23:45 650 MG Nitroglycerin 0.4 mg Q5MINP PRN SL 04/14/25 15:30 Morphine Sulfate 2 mg Q30M PRN IV 04/14/25 15:30 Albuterol 2.5 mg Q6HPRN PRN NEB 04/15/25 00:45 04/16/25 22:42 2.5 MG Bumetanide 2 mg BIDD IV 04/15/25 09:15 04/19/25 05:53 2 MG Calcium Acetate 1,334 mg TIDWMEALS PO 04/15/25 18:00 04/19/25 12:07 1,334 MG Epoetin Warren-epbx 10,000 unit TUTHSA SC 04/15/25 12:30 04/19/25 09:49 10,000 UNIT Sodium Bicarbonate 650 mg BID PO 04/15/25 22:00 04/19/25 15:30 650 MG Clonidine HCl 0.1 mg Q4HP PRN PO 04/17/25 08:30 04/18/25 22:08 0.1 MG Losartan Potassium 50 mg DAILY PO 04/18/25 10:00 04/19/25 15:29 50 MG Mupirocin 1 applic BID EACHNOSTRI 04/19/25 13:30 04/24/25 13:29 Examination General Appearance: Alert, Oriented X3, Cooperative, No acute distress HEENT: Atraumatic, PERRLA, EOMI, Mucous membr. moist/pink Respiratory: Normal air movement, Bilateral bibasilar crackles Cardiovascular: Regular rate, Normal S1, Normal S2, No murmurs Abdominal: Normal bowel sounds, Soft, No tenderness, No hepatospenomegaly, No masses Extremities: No clubbing, No cyanosis, Normal pulses, +1 pitting edema in bilateral legs Skin: No rashes, No breakdown, No significant lesion, tunnel catheter placed on right chest for HD Neuro: Normal speech, Normal tone, Sensation intact, Cranial nerves 3-12 NL, Reflexes 2+, Other (Generalized weakness) Psych/Mental Status: Mental status NL, Mood NL laboratory and microbiology Laboratory Tests 04/19/25 07:25 Test 04/19/25 07:25 Range/Units Serum Glucose 109 H 74-106 mg/dL Microbiology Date/Time Source Procedure Growth Status 04/19/25 09:30 Nose MRSA Screen - Final Methicillin Resistant S.aureus Complete Labs and/or images reviewed: Labs reviewed by me, Image(s) reviewed by me Problem List/Assessment/Plan Problem List/Assessment/Plan #CKD stage 4 now ESRD #Hyperphosphatemia #Hyperkalemia -Nephrology consult suggested peritoneal dialysis catheter for hemodialysis -Bumex 2 mg b.i.d. IV -surg consulted for peritoneal dialysis catheter for HD suggested: Due to the lower midline incision most likely is not a very good candidate for peritoneal dialysis with a high rate of dysfunction with possible scar tissue. Would recommend vein mapping for fistula creation as well. If needs urgent dialysis we will need tunneled dialysis catheter. We will need cardiac clearance -IR consulted for vein mapping -patient received tunnel catheter, awaiting hemodialysis -cardiac clearance received for AV fistula formation -Nephrology 04/17/25- Hemodialysis tolerated today; add losartan to BP meds, coreg, norvasc, continue bumex 2mg po daily in outpatient; calcium acetate with meals; epogen 3x a week; renal diet - 04/18/2025- nephrology suggests Hemodialysis tomorrow - 04/19/2025 .Hemodialysis today, does not tolerate UF #Pulmonary edema #Small bilateral pleural effusions -x-ray: Pulmonary edema, Small bilateral pleural effusions -furosemide -Breathing treatment #Uncontrolled diabetes mellitus, HbA1c 6.4 -mild Sliding scale insulin #Hyperkalemia -04/15/2025, 5.9- per protocol - 10 units insulin with dextrose, albuterol, calcium gluconate -potassium 5.6-Lokelma b.i.d. started #Anemia of chronic disease (ckd) -monitor H&H #asymptomatic UTI -UA bacteria few, WBC 7, leukocyte esterase 1+, RBC 4+, protein 2+, blood 1+ #secondary hyperparathyroidism due to CKD -calcium acetate tid with meals GI prophylaxis: not indicated DVT prophylaxis: ambulating Diet: renal diet Goals of care discussed with the patient for more than 27 minutes: Full code status Case discussed with Dr. Herring, patient and nurse. Plan discussed with: Patient, Other (rn) Date of Service: Apr 19, 2025 Billing Provider: MANI HERRING MD Common Visit Codes: [id number] INP/OBS CARE(HIGH) PRECIOUS TEMPLE RESIDENT Apr 19, 2025 16:30 MANI HERRING MD Apr 21, 2025 21:13
[2025-04-20] VITALS (8 sets, daily range): BP systolic 131–154; BP diastolic 63–81; PULSE 73–84; RESP 16–20; TEMP 98–98.6; O2SAT 90–96
[2025-04-20 08:20] LABS: Hematocrit 25.0 % (36.0-46.0); Hemoglobin 8.5 g/dL (12.2-16.2); Mean Corpuscular Hemoglobin 27.7 pg (28.0-32.0); Mean Corpuscular Volume 82.0 fL (80.0-100.0); Nucleated Red Blood Cells % 0.0 %
[2025-04-20 08:29] LABS: Chloride 105 mmol/L (98-107); Potassium 4.1 mmol/L (3.5-5.1); Sodium 144 mmol/L (136-145)
[2025-04-20 08:30] LABS: Anion Gap 9 (5-15); Carbon Dioxide 30 mmol/L (20-31)
[2025-04-20 08:35] LABS: Calcium 8.4 mg/dL (8.7-10.4)
[2025-04-20 08:36] LABS: BUN/Creatinine Ratio 4.8 (10.0-20.0)
[2025-04-20 08:39] LABS: Blood Urea Nitrogen 29 mg/dL (9-23); Glucose 114 mg/dL (74-106)
--- NOTE | 2025-04-20 12:02 | DVHPN2 ---
Progress Note Date Seen: Apr 20, 2025 Medical Necessity Reason Pt with a Central, PICC or Fol: Yes The following are medically ne: Central Line (tunnel HD catheter) Subjective Patient reports: Feels better Objective vital signs Vital Sign Date Time Temp Pulse Resp B/P (MAP) Pulse Ox O2 Delivery O2 Flow Rate FiO2 04/20/25 10:00 95 Room Air 0.0 04/20/25 10:00 21 04/20/25 08:41 98.1 83 20 154/76 (102) 98.1 Total Intake and Output 04/19/25 04/19/25 04/20/25 14:59 22:59 06:59 Intake Total 236 ml 690 ml 2000 ml Output Total 1200 ml 1 ml Balance 236 ml -510 ml 1999 ml medications Current Medications Medications Dose Ordered Sig/Ronald Route Start Time Stop Time Status Last Admin Dose Admin Aspirin 81 mg DAILY PO 04/15/25 10:00 04/20/25 08:13 81 MG Multivit/Ca Carb/ B Cmplx/FA/Prenat 1 tab DAILY PO 04/15/25 10:00 04/20/25 08:13 1 TAB Amlodipine Besylate 5 mg DAILY PO 04/15/25 10:00 04/20/25 08:14 5 MG Carvedilol 12.5 mg Q12HR PO 04/14/25 22:00 04/20/25 08:15 12.5 MG Atorvastatin Calcium 10 mg HS PO 04/14/25 22:00 04/19/25 21:27 10 MG Famotidine 20 mg DAILY IV 04/15/25 10:00 04/20/25 08:12 20 MG Diagnostic Test (Pha) 1 strip IQ4HR 04/14/25 16:00 04/20/25 11:43 1 STRIP Insulin Human Regular IQ4HR SC 04/14/25 16:00 04/20/25 11:43 2 UNITS Sodium Chloride 10 ml Q8HR IV 04/14/25 14:00 04/20/25 06:15 10 ML Acetaminophen/ Hydrocodone Bitart 1 tab Q4HP PRN PO 04/14/25 14:00 Ondansetron HCl 4 mg Q4HP PRN IV 04/14/25 14:00 04/19/25 13:29 4 MG Docusate Sodium 100 mg BIDPRN PRN PO 04/14/25 14:00 Acetaminophen 650 mg Q6HP PRN PO 04/14/25 14:00 04/16/25 23:45 650 MG Nitroglycerin 0.4 mg Q5MINP PRN SL 04/14/25 15:30 Morphine Sulfate 2 mg Q30M PRN IV 04/14/25 15:30 Bumetanide 2 mg BIDD IV 04/15/25 09:15 04/20/25 06:14 2 MG Calcium Acetate 1,334 mg TIDWMEALS PO 04/15/25 18:00 04/20/25 08:13 1,334 MG Epoetin Warren-epbx 10,000 unit TUTHSA SC 04/15/25 12:30 04/19/25 09:49 10,000 UNIT Sodium Bicarbonate 650 mg BID PO 04/15/25 22:00 04/20/25 08:14 650 MG Clonidine HCl 0.1 mg Q4HP PRN PO 04/17/25 08:30 04/18/25 22:08 0.1 MG Losartan Potassium 50 mg DAILY PO 04/18/25 10:00 04/20/25 08:15 50 MG Mupirocin 1 applic BID EACHNOSTRI 04/19/25 13:30 04/24/25 13:29 04/20/25 08:14 1 APPLIC Examination: GENERAL:Normal, CVS:Normal, SKIN:Normal laboratory and microbiology Laboratory Tests 04/20/25 06:52 Test 04/20/25 06:52 Range/Units Serum Glucose 114 H 74-106 mg/dL Microbiology Date/Time Source Procedure Growth Status 04/19/25 09:30 Nose MRSA Screen - Final Methicillin Resistant S.aureus Complete Problem List/Assessment/Plan Problem List/Assessment/Plan CKD 5 with progression to end-stage renal disease Hypertension Anemia due to chronic kidney disease Fluid overload Pericardial effusion Hyperphosphatemia Hyperkalemia Hemodialysis monday, does not tolerate UF next HD monday or monday no UF losartan to BP meds, coreg, norvasc, continue bumex 2mg po daily in outpatient calcium acetate with meals epogen 3x a week renal diet rec vein mapping ( ordered tech reports they arent trained ) and AVF inpatient by vascular if can be arranged Chair time with [facility] dispo after confirmation. pending monday confirmation Plan discussed with: Patient CARMITA WEST MD Apr 20, 2025 12:02
--- NOTE | 2025-04-20 15:36 | DVHPNRES ---
Progress Note Date Seen: Apr 20, 2025 Resident Creating Document: JYOTHI BETANCOURT RESIDENT Medical Necessity Reason Pt with a Central, PICC or Fol: Yes The following are medically ne: Central Line (tunnel HD catheter) Subjective Review of Systems The patient is a 51-year-old female with past medical history of chronic kidney failure stage IV, diabetes mellitus, and hypertension who presented to [facility] ED with complaint of shortness of breaths. Patient reports she has been experiencing intermittent shortness of breaths for the past 2 months which has increased in the past few days. Patient said she went to [place] for a week and she bought gcav-vry-deccnli inhalers which helped a bit but yesterday it did not which is why she came to the hospital. On inquiry she says she has some coughing with clear phlegm production. She reports having no sick contacts, denies any fever, chills, diaphoresis, chest pain, headache, dizziness or change in bowel and bladder habits. Past Medical History: CKD stage 4, DM, HTN Past Surgical History: Denies all surgeries Family History: Reviewed, noncontributory to the management of this case. Past Social History: The patient lives at home, denies smoking, alcohol or illicit drugs abuse. Allergies: None ROS: 04/15/2025: Patient was seen and examined by me at the bedside. Overnight events were reviewed. Patient reports she feels better today with oxygen. We have administered 5 L has a saturation was 94%. Her chest x-ray revealed pulmonary edema and acute blunting of the costovertebral angle, suggesting pleural effusion. Nephrology consult has been placed. Administered Bumex 1 mg b.i.d., put her on strict input-output monitoring, fluid restriction and as per nephron consulted the surgeon for peritoneal dialysis catheter for hemodialysis per Nephrology as the patient is CKD stage 4. Ordered Hb1AC, pending. also ordered MRSA nares, TSH, COVID/ flu tests, liver panel, PTH, vitamin-D, 04/16/25: Patient was seen and examined by me at the bedside. Overnight events were reviewed. Today a tunnel catheter was placed on the right side of the chest. Surgery since she was a poor candidate for peritoneal dialysis with a high rate of dysfunction with possible scar tissue. Patient is still requiring 5 L of oxygen. Her shortness of breath increases on exertion. We are awaiting chair time for hemodialysis. Patient's potassium was 5.6 today and we started her on Lokelma b.i.d.. 04/17/2025: patient was seen and examined by me at the bedside. Overnight events were reviewed. Patient reports that there is slight pain at the tunnel catheter site which was relieved by Tylenol. she underwent hemodialysis today which she tolerated well. Waiting for chair time at [facility] dialysis. 04/18/2025: patient reports that she feels much better after the dialysis yesterday. She is no longer on oxygen like she was yesterday on 5 L. she reports that she is breathing much better. She did have 1 episode of vomiting after the dialysis though which contained the food particles she had eaten. Nephrology consult suggests hemodialysis tomorrow as well. We are waiting for chair time at [facility] dialysis. 04/19/2025: Patient was seen and examined by me at the bedside. Overnight events were reviewed. Patient has no new active complaints. Hemodialysis done today, does not tolerate UF. She has been accepted by [facility] for chair time on Monday, and Monday. Her next hemodialysis will be on Monday at 1:15 p.m. Possible AV fistula formed by vascular surgeon on Monday. 04/20/2025: Patient seen at bedside. She appears alert x3, in no distress, no overnight events were reported. Patient complained of vomiting 1 time yesterday and dizziness , headache after dialysis. Consulted vascular surgery for AV fistula pain for dialysis. Objective vital signs Vital Sign Date Time Temp Pulse Resp B/P (MAP) Pulse Ox O2 Delivery O2 Flow Rate FiO2 04/20/25 12:49 98.6 73 20 137/63 (87) 93 98.6 04/20/25 10:00 Room Air 0.0 04/20/25 10:00 21 Total Intake and Output 04/19/25 04/19/25 04/20/25 15:00 23:00 07:00 Intake Total 236 ml 690 ml 2000 ml Output Total 1200 ml 1 ml Balance 236 ml -510 ml 1999 ml medications Current Medications Medications Dose Ordered Sig/Ronald Route Start Time Stop Time Status Last Admin Dose Admin Aspirin 81 mg DAILY PO 04/15/25 10:00 04/20/25 08:13 81 MG Multivit/Ca Carb/ B Cmplx/FA/Prenat 1 tab DAILY PO 04/15/25 10:00 04/20/25 08:13 1 TAB Amlodipine Besylate 5 mg DAILY PO 04/15/25 10:00 04/20/25 08:14 5 MG Carvedilol 12.5 mg Q12HR PO 04/14/25 22:00 04/20/25 08:15 12.5 MG Atorvastatin Calcium 10 mg HS PO 04/14/25 22:00 04/19/25 21:27 10 MG Famotidine 20 mg DAILY IV 04/15/25 10:00 04/20/25 08:12 20 MG Diagnostic Test (Pha) 1 strip IQ4HR 04/14/25 16:00 04/20/25 11:43 1 STRIP Insulin Human Regular IQ4HR SC 04/14/25 16:00 04/20/25 11:43 2 UNITS Sodium Chloride 10 ml Q8HR IV 04/14/25 14:00 04/20/25 14:00 10 ML Acetaminophen/ Hydrocodone Bitart 1 tab Q4HP PRN PO 04/14/25 14:00 Ondansetron HCl 4 mg Q4HP PRN IV 04/14/25 14:00 04/19/25 13:29 4 MG Docusate Sodium 100 mg BIDPRN PRN PO 04/14/25 14:00 Acetaminophen 650 mg Q6HP PRN PO 04/14/25 14:00 04/16/25 23:45 650 MG Nitroglycerin 0.4 mg Q5MINP PRN SL 04/14/25 15:30 Morphine Sulfate 2 mg Q30M PRN IV 04/14/25 15:30 Bumetanide 2 mg BIDD IV 04/15/25 09:15 04/20/25 06:14 2 MG Calcium Acetate 1,334 mg TIDWMEALS PO 04/15/25 18:00 04/20/25 12:34 1,334 MG Epoetin Warren-epbx 10,000 unit TUTHSA SC 04/15/25 12:30 04/19/25 09:49 10,000 UNIT Sodium Bicarbonate 650 mg BID PO 04/15/25 22:00 04/20/25 08:14 650 MG Clonidine HCl 0.1 mg Q4HP PRN PO 04/17/25 08:30 04/18/25 22:08 0.1 MG Losartan Potassium 50 mg DAILY PO 04/18/25 10:00 04/20/25 08:15 50 MG Mupirocin 1 applic BID EACHNOSTRI 04/19/25 13:30 04/24/25 13:29 04/20/25 08:14 1 APPLIC Examination General: Patient alert and oriented in person, place and time. Patient following commands. HEENT: Normocephalic, atraumatic, moist mucous membranes Respiratory/pulmonary: Clear lungs bilaterally, vesicular murmurs present in almost all lung dey, no associated crackles or wheezes. Cardiovascular: Normal heart sounds S1 and S2 with no associated murmurs, tunnel catheter placed on right chest for HD Abdomen: Abdomen nondistended, there is no pain to palpation in any of the abdominal quadrants, no palpable masses. Extremities: +1 pitting edema in bilateral legs Peripheral Pulses: 3+ Radial (R). 3+ Radial (L). 3+ Dorsalis pedis (R). 3+ Dorsalis pedis(L) Skin: No rashes or pruritus, there is no sacral edema present at this time. Neurological: Intact cranial nerves with no focal neurologic deficits laboratory and microbiology Laboratory Tests 04/20/25 06:52 Test 04/20/25 06:52 Range/Units Serum Glucose 114 H 74-106 mg/dL Microbiology Date/Time Source Procedure Growth Status 04/19/25 09:30 Nose MRSA Screen - Final Methicillin Resistant S.aureus Complete Labs and/or images reviewed: Labs reviewed by me, Image(s) reviewed by me Problem List/Assessment/Plan Problem List/Assessment/Plan #CKD stage 4 now ESRD #Hyperphosphatemia #Hyperkalemia -Nephrology consult suggested peritoneal dialysis catheter for hemodialysis -Bumex 2 mg b.i.d. IV -surg consulted for peritoneal dialysis catheter for HD suggested: Due to the lower midline incision most likely is not a very good candidate for peritoneal dialysis with a high rate of dysfunction with possible scar tissue. Would recommend vein mapping for fistula creation as well. If needs urgent dialysis we will need tunneled dialysis catheter. We will need cardiac clearance -IR consulted for vein mapping -patient received tunnel catheter, awaiting hemodialysis -cardiac clearance received for AV fistula formation -Nephrology 04/17/25- Hemodialysis tolerated today; add losartan to BP meds, coreg, norvasc, continue bumex 2mg po daily in outpatient; calcium acetate with meals; epogen 3x a week; renal diet - 04/18/2025- nephrology suggests Hemodialysis tomorrow - 04/19/2025 .Hemodialysis today, does not tolerate UF - 04/20/2025: Vascular surgery consulted for AV fistula, #Pulmonary edema #Small bilateral pleural effusions -x-ray: Pulmonary edema, Small bilateral pleural effusions -furosemide -Breathing treatment #Uncontrolled diabetes mellitus, HbA1c 6.4 -mild Sliding scale insulin #Hyperkalemia -04/15/2025, 5.9- per protocol - 10 units insulin with dextrose, albuterol, calcium gluconate -potassium 5.6-Lokelma b.i.d. started #Anemia of chronic disease (ckd) -monitor H&H #asymptomatic UTI -UA bacteria few, WBC 7, leukocyte esterase 1+, RBC 4+, protein 2+, blood 1+ #secondary hyperparathyroidism due to CKD -calcium acetate tid with meals GI prophylaxis: not indicated DVT prophylaxis: ambulating Diet: renal diet Goals of care discussed with the patient for more than 27 minutes: Full code status Case discussed with Dr. Herring, patient and nurse. Plan discussed with: Patient, Other (RN) My Orders My Orders Orders - JYOTHI BETANCOURT Procedure Category Date Status Time Consult CONS 04/20/25 Transmitted Vascular/Endovascular 07:27 Date of Service: Apr 20, 2025 Billing Provider: MANI HERRING MD Common Visit Codes: [id number] INP/OBS CARE(HIGH) JYOTHI BETANCOURT Apr 20, 2025 15:36 MANI HERRING MD Apr 25, 2025 21:36
[2025-04-20 17:33] LABS: COVID19 ANTIGEN SOFIA FIA NEGATIVE (NEGATIVE)
[2025-04-21] VITALS (8 sets, daily range): BP systolic 140–168; BP diastolic 78–96; PULSE 71–86; RESP 14–19; TEMP 97.6–98.5; O2SAT 92–97
[2025-04-21 08:04] LABS: Hematocrit 28.2 % (36.0-46.0); Hemoglobin 9.5 g/dL (12.2-16.2); Mean Corpuscular Hemoglobin 27.9 pg (28.0-32.0); Mean Corpuscular Volume 82.4 fL (80.0-100.0); Nucleated Red Blood Cells % 0.0 %
[2025-04-21 08:13] LABS: Chloride 104 mmol/L (98-107); Potassium 4.1 mmol/L (3.5-5.1); Sodium 143 mmol/L (136-145)
[2025-04-21 08:14] LABS: Anion Gap 12 (5-15); Calcium 8.9 mg/dL (8.7-10.4); Carbon Dioxide 27 mmol/L (20-31)
[2025-04-21 08:19] LABS: BUN/Creatinine Ratio 4.6 (10.0-20.0)
[2025-04-21 08:22] LABS: Blood Urea Nitrogen 33 mg/dL (9-23); Glucose 114 mg/dL (74-106)
[2025-04-21] MEDS: ALBUMIN 25% 100 ML IV ONE (09:35)
[2025-04-21] MEDS: SODIUM CHL 0.9% 1000 ML BAG XX ONE (09:35)
[2025-04-21] MEDS ORDERED: ATOR20TA50 PO (14:12)
[2025-04-21] MEDS ORDERED: ASPI-325 PO (14:12)
--- NOTE | 2025-04-21 15:23 | DVHPN2 ---
Progress Note Date Seen: Apr 21, 2025 Medical Necessity Reason Pt with a Central, PICC or Fol: Yes The following are medically ne: Central Line (tunnel HD catheter) Subjective Patient reports: No new complaints Review of Systems: Deferred Objective vital signs Vital Sign Date Time Temp Pulse Resp B/P (MAP) Pulse Ox O2 Delivery O2 Flow Rate FiO2 04/21/25 13:14 160/88 04/21/25 13:00 98.4 81 19 95 98.4 04/21/25 10:00 Room Air* 0 21 Total Intake and Output 04/20/25 04/20/25 04/21/25 15:00 23:00 07:00 Intake Total 585 ml 450 ml Output Total 500 ml 1000 ml Balance 85 ml -550 ml medications Current Medications Medications Dose Ordered Sig/Ronald Route Start Time Stop Time Status Last Admin Dose Admin Aspirin 81 mg DAILY PO 04/15/25 10:00 04/21/25 09:25 81 MG Multivit/Ca Carb/ B Cmplx/FA/Prenat 1 tab DAILY PO 04/15/25 10:00 04/21/25 09:26 1 TAB Amlodipine Besylate 5 mg DAILY PO 04/15/25 10:00 04/21/25 09:27 5 MG Carvedilol 12.5 mg Q12HR PO 04/14/25 22:00 04/21/25 09:26 12.5 MG Atorvastatin Calcium 10 mg HS PO 04/14/25 22:00 04/20/25 20:55 10 MG Famotidine 20 mg DAILY IV 04/15/25 10:00 04/21/25 09:25 20 MG Diagnostic Test (Pha) 1 strip IQ4HR 04/14/25 16:00 04/21/25 12:00 1 STRIP Insulin Human Regular IQ4HR SC 04/14/25 16:00 04/21/25 12:54 2 UNITS Sodium Chloride 10 ml Q8HR IV 04/14/25 14:00 04/21/25 14:00 10 ML Acetaminophen/ Hydrocodone Bitart 1 tab Q4HP PRN PO 04/14/25 14:00 Ondansetron HCl 4 mg Q4HP PRN IV 04/14/25 14:00 04/19/25 13:29 4 MG Docusate Sodium 100 mg BIDPRN PRN PO 04/14/25 14:00 Acetaminophen 650 mg Q6HP PRN PO 04/14/25 14:00 04/16/25 23:45 650 MG Nitroglycerin 0.4 mg Q5MINP PRN SL 04/14/25 15:30 Morphine Sulfate 2 mg Q30M PRN IV 04/14/25 15:30 Bumetanide 2 mg BIDD IV 04/15/25 09:15 04/21/25 06:08 2 MG Calcium Acetate 1,334 mg TIDWMEALS PO 04/15/25 18:00 04/21/25 12:53 1,334 MG Epoetin Warren-epbx 10,000 unit TUTHSA SC 04/15/25 12:30 04/19/25 09:49 10,000 UNIT Sodium Bicarbonate 650 mg BID PO 04/15/25 22:00 04/21/25 09:25 650 MG Clonidine HCl 0.1 mg Q4HP PRN PO 04/17/25 08:30 04/21/25 13:14 0.1 MG Losartan Potassium 50 mg DAILY PO 04/18/25 10:00 04/21/25 09:26 50 MG Mupirocin 1 applic BID EACHNOSTRI 04/19/25 13:30 04/24/25 13:29 04/21/25 09:34 1 APPLIC laboratory and microbiology Laboratory Tests 04/21/25 06:12 Test 04/21/25 06:12 Range/Units Serum Glucose 114 H 74-106 mg/dL Microbiology Date/Time Source Procedure Growth Status 04/19/25 09:30 Nose MRSA Screen - Final Methicillin Resistant S.aureus Complete Problem List/Assessment/Plan Problem List/Assessment/Plan 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 Hypertension Anemia due to chronic kidney disease Fluid overload Pericardial effusion Hyperphosphatemia Hyperkalemia Recommendations Hemodialysis tomorrow Chair time with [facility] Okay to DC once chair time is arranged AVF placement as outpatient Plan discussed with: Patient Dietary Evaluation Review Comments: 1) Add 60g CCHO cardiac restriction to renal diet 2) Initiate Nepro qd 3) Encourage optimal PO intake 4) Follow-up with nephrology 5) Continue to monitor I&O, labs, and skin integrity Expected Outcomes/Goals: 1) appetite and labs to improve 2) f/u in 3-5 days CHARLES TONG MD Apr 21, 2025 15:23
--- NOTE | 2025-04-21 16:56 | DVHDSRES ---
Discharge Summary Date of Admission Resident Creating Document: PRECIOUS [facility]PLE RESIDENT Apr 14, 2025 at 15:30 Date of Discharge: Apr 21, 2025 Admitting Diagnosis #SOB due to Pulmonary edema Labs/Diagnostic Data: Laboratory Results Test 04/21/25 06:12 04/21/25 04:32 04/20/25 05:10 04/19/25 07:25 White Blood Count 8.9 10^3/uL (4.4-10.8) Red Blood Count 3.42 10^6/uL (4.0-5.20) Hemoglobin 9.5 g/dL (12.2-16.2) Hematocrit 28.2 % (36.0-46.0) Mean Corpuscular Volume 82.4 fL (80.0-100.0) Mean Corpuscular Hemoglobin 27.9 pg (28.0-32.0) Mean Corpuscular Hemoglobin Concent 33.8 g/dL (32.0-36.0) Red Cell Distribution Width 14.4 % (11.8-14.3) Platelet Count 222 10^3/uL (140-450) Mean Platelet Volume 7.6 fL (6.9-10.8) Neutrophils (%) (Auto) 63.6 % (37.0-80.0) Lymphocytes (%) (Auto) 21.6 % (10.0-50.0) Monocytes (%) (Auto) 6.7 % (0.0-12.0) Eosinophils (%) (Auto) 7.2 % (0.0-7.0) Basophils (%) (Auto) 0.9 % (0.0-2.0) Neutrophils # (Auto) 5.7 10 ^3/uL (1.6-8.6) Lymphocytes # (Auto) 1.9 10 ^3/uL (0.4-5.4) Monocytes # (Auto) 0.6 10 ^3/uL (0-1.3) Eosinophils # (Auto) 0.6 10 ^3/uL (0-0.8) Basophils # (Auto) 0.1 10 ^3/uL (0-0.2) Nucleated Red Blood Cells 0.0 % Sodium Level 143 mmol/L (136-145) Potassium Level 4.1 mmol/L (3.5-5.1) Chloride Level 104 mmol/L (98-107) Carbon Dioxide Level 27 mmol/L (20-31) Anion Gap 12 (5-15) Blood Urea Nitrogen 33 mg/dL (9-23) Creatinine 7.12 mg/dL (0.550-1.02) Glomerular Filtration Rate Calc 6 mL/min (>90) BUN/Creatinine Ratio 4.6 (10.0-20.0) Serum Glucose 114 mg/dL (74-106) Calcium Level 8.9 mg/dL (8.7-10.4) POC Glucose 113 mg/dl (70-106) Influenza Type A Antigen Negative (Negative) Influenza Type B Antigen Negative (Negative) SARS-CoV-2 Antigen (Rapid) Negative (NEGATIVE) Phosphorus Level 5.2 mg/dL (2.4-5.1) Test 04/17/25 06:39 04/16/25 06:44 04/15/25 08:34 04/14/25 17:40 Hepatitis C Antibody Negative (Negative) Total Bilirubin 0.2 mg/dL (0.2-1.0) Aspartate Amino Transferase (AST) 15 U/L (13-40) Alanine Aminotransferase (ALT) 18 U/L (7-40) Alkaline Phosphatase 68 U/L (46-116) Total Protein 5.6 g/dL (5.7-8.2) Albumin 3.6 g/dL (3.2-4.8) Hemoglobin A1c 6.4 % A1C (<5.7) Iron Level 54 ug/dL (50-170) Total Iron Binding Capacity 225 ug/dL (250-425) Percent Iron Saturation 24.0 % (15-50) Ferritin 221.7 ng/mL (10-291) Vitamin D 25-Hydroxy 78.9 ng/mL (30.0-100) Thyroid Stimulating Hormone (TSH) 3.71 uIU/mL (0.55-4.78) Parathyroid Hormone (Intact) 378.6 pg/mL (18.4-80.1) Hepatitis B Surface Antigen Negative (Negative) Urine Color Colorless (Yellow) Urine Clarity Clear (Clear) Urine pH 7.0 (5.0-9.0) Urine Specific [place] 1.007 (1.001-1.035) Urine Protein 2+ (Negative) Urine Ketones Negative (Negative) Urine Blood 1+ /uL (Negative) Urine Nitrite Negative (Negative) Urine Bilirubin Negative (Negative) Urine Urobilinogen Normal mg/dL (Negative) Urine Leukocyte Esterase 1+ /uL (Negative) Urine RBC 4 /hpf (0 - 4) Urine Microscopic WBC 7 /HPF (0-5) Urine Squamous Epithelial Cells Few /hpf (<5) Urine Bacteria Few /hpf (None Seen) Urine Glucose 3+ mg/dL (Normal) Test 04/14/25 10:13 B-Type Natriuretic Peptide 533.89 pg/mL (0-100) Other Laboratory Tests 04/21/25 06:12 Brief Hx & Hospital Course: The patient is a 51-year-old female with past medical history of chronic kidney failure stage IV, diabetes mellitus, and hypertension who presented to [facility] ED with complaint of shortness of breaths. Patient reports she has been experiencing intermittent shortness of breaths for the past 2 months which has increased in the past few days. Patient said she went to [place] for a week and she bought [id number] inhalers which helped a bit but yesterday it did not which is why she came to the hospital. On inquiry she says she has some coughing with clear phlegm production. She reports having no sick contacts, denies any fever, chills, diaphoresis, chest pain, headache, dizziness or change in bowel and bladder habits. Past Medical History: CKD stage 4, DM, HTN Past Surgical History: Denies all surgeries Family History: Reviewed, noncontributory to the management of this case. Past Social History: The patient lives at home, denies smoking, alcohol or illicit drugs abuse. Allergies: None Brief history of hospitalization: Patient came in due to shortness of breath due to bilateral small pleural effusion seen on chest x-ray and CKD stage 5 with progression to end-stage renal disease. We gave her furosemide intravenously and breathing treatment for the shortness of breath. Labs showed hypophosphatemia and hypokalemia as well. Nephrology consult was done and Bumex 2 mg b.i.d. intravenously was started. Patient was initially suggested peritoneal dialysis catheter for hemodialysis but due to lower midline incision, surgery consult suggested she needed a tunneled dialysis catheter, which was placed with the help of IR team. On 04/17/2025 hemodialysis was done, losartan, Coreg, Norvasc, calcium acetate, and epogen thrice a week was suggested. Patient tolerated the hemodialysis well. She had another session of hemodialysis done on 04/19/2025 which she tolerated well as well. Patient reported feeling much better after each hemodialysis session. Her kidney function test labs have been improving as well. For patient's uncontrolled diabetes mellitus with an HbA1c of 6.4 we started on mild sliding scale insulin. She also had hyperkalemia when she presented and we controlled it with 10 units insulin with dextrose, albuterol, gluconate and Lokelma b.i.d. Patient also had anemia of chronic disease and hemoglobin was monitored throughout the hospitalization. For secondary hyperparathyroidism due to CKD we gave her calcium acetate twice a day with meals. A vascular surgeon was consulted for patient's pending AV fistula but because of the lack of AV mapping here in our center and outpatient follow up with the vascular surgeon is recommended. She is now stable for discharge. Patient has been counseled to meet her primary care physician for this. We have contacted [facility] and she is scheduled for Monday- and Monday HD. Her next hemodialysis will be on Monday at 1:15 p.m. and patient has been counseled regarding need for continuation of hemodialysis. Patient has verbalized understanding and has agreed with the discharge plan. Operations or Procedures CXR: IMPRESSION: Pulmonary edema. INVENCAT - Insertion of Venous Cath REASON: HD PLACEMENT IMPRESSION: Successful placement of 14.5 hebrew [place] [address], 19 cm long hemodialysis catheter through right internal jugular vein. Plan: Please contact IR for removal when no longer needed. Condition at Discharge: Stable Final Diagnosis/Problems List #CKD 5 with progression to end-stage renal disease #ruled out CHF #acute hypoxic resp failure, secondary to fluid overload state #Hypertension #Moderate mitral valve regurgitation #SOB due to Pulmonary edema #Hyperphosphatemia #Hyperkalemia #Uncontrolled diabetes mellitus, HbA1c 6.4 #Small bilateral pleural effusions #Anemia of chronic disease (ckd) #Dyslipidemia #asymptomatic UTI #secondary hyperparathyroidism due to CKD #Obesity Discharge Disposition: Home Discharge Instruct/Medications Diet: Consistent carbohydrate, Cardiac 2g Na,low cholest, Renal Activity: No Restrictions, As Tolerated Follow Up/Referral: followup with Primary care physician in 1 week followup with vascular surgeon for formation of AV fistula followup at Discharge clinic within 1 week Medications: as per emr Scheduled Amlodipine Besylate (Amlodipine Besylate), 1 TAB PO DAILY, (Reported) Aspirin (Aspirin Low Dose), 81 MG PO DAILY Atorvastatin Calcium (Atorvastatin Calcium), 10 MG PO HS Clonidine Hydrochloride (Clonidine Hcl), 1 PO DAILY, (Reported) Fluticasone Propionate (Nasal) (Fluticasone Propionate), 2 SPRAY BRIANNA DAILY, (Reported) Insulin Glargine (Basaglar Kwikpen), 60 UNIT SC BID, (Reported) Miscellaneous Medications Zolpidem Tartrate (Zolpidem Tartrate), 1 TAB PO, (Reported) Discharge Statement: "Patient was advised to return to the ER or call 911 if any headaches, dizziness, shortness of breath, chest pain, abdominal pain, bleeding, fevers, or worsening of medical condition. Patient was counseled about treatment plan, medications, possible side effects, patientverbalized understanding. All questions were answered to the best of my ability. This discharge took greater then 30 minutes in planning, reviewing documentation, counseling the patient, and discussing with other team members." ASSESSMENT ASSESSMENT Assessment CKD 5 with progression to end-stage renal disease Date of Service: Apr 21, 2025 Billing Provider: ALBERTO RICHARDS MD Common Visit Codes: 60446-KFP/OBS DISCH DAY >30min PRECIOUS TEMPLE RESIDENT Apr 21, 2025 16:56 ALBERTO RICHARDS MD Apr 22, 2025 18:28
== END 2025-04-21 18:20 | disposition home or self-care (01) | DRG 425 ==
LOC: ER 08:37 → OVERFLOW 15:30 → TELE-WESTW 22:21
PROVIDERS: ADMIT Internal Medicine; ATTEND Internal Medicine
PROC: 0JH63XZ Insertion of Tunneled Vascular Access Device into Chest Subcutaneous Tissue and Fascia, Percutaneous Approach (ICD-10-PCS; 2025-04-16)
PROC: 02H633Z Insertion of Infusion Device into Right Atrium, Percutaneous Approach (ICD-10-PCS; 2025-04-16)
PROC: B548ZZA Ultrasonography of Superior Vena Cava, Guidance (ICD-10-PCS; 2025-04-16)
PROC: B518ZZA Fluoroscopy of Superior Vena Cava, Guidance (ICD-10-PCS; 2025-04-16)
PROC: 5A1D70Z Performance of Urinary Filtration, Intermittent, Less than 6 Hours Per Day (ICD-10-PCS; principal; 2025-04-17)
PROC: 5A1D70Z Performance of Urinary Filtration, Intermittent, Less than 6 Hours Per Day (ICD-10-PCS; 2025-04-19)
DX: E87.70 Fluid overload, unspecified (principal); J96.01 Acute respiratory failure with hypoxia; I31.39 Other pericardial effusion (noninflammatory); J81.0 Acute pulmonary edema; N17.9 Acute kidney failure, unspecified; D63.1 Anemia in chronic kidney disease; E83.39 Other disorders of phosphorus metabolism; N18.6 End stage renal disease; I12.0 Hypertensive chronic kidney disease with stage 5 chronic kidney disease or end stage renal disease; Z68.27 Body mass index [BMI] 27.0-27.9, adult; E11.22 Type 2 diabetes mellitus with diabetic chronic kidney disease; Z20.822 Contact with and (suspected) exposure to COVID-19; E87.5 Hyperkalemia; I34.0 Nonrheumatic mitral (valve) insufficiency; E78.5 Hyperlipidemia, unspecified; E66.9 Obesity, unspecified; Z80.1 Family history of malignant neoplasm of trachea, bronchus and lung; Z80.3 Family history of malignant neoplasm of breast
CPT/HCPCS: 36415; 36558; 71045; 80048; 80053; 81001; 82306; 82728; 82962; 83036; 83540; 83550; 83880; 83970; 84100; 84132; 84443; 85025; 86803; 86850; 86870; 86900; 86901; 87081; 87340; 87426; 87804; 90935; 93005; 93306; 94640; 96374; 99152; 99291; 99292; C1894; G0378; J1815; J2250; J2405; J3490